=== PATIENT | female | born 1940 | race Caucasian/White ===

== ENCOUNTER 2019-12-19 14:28 | Outpatient (CLI) | payer MEDICARE, BC ==
--- NOTE | 2019-12-21 06:28 | XRAY Report ---
Reason: LB PX AFTER FALL Procedure Date: 12/19/2019 Accession Number: [id number] / [id number] Procedure: XR - Thoracic Spine 2 View CPT Code: Final Report FULL RESULT: EXAM: THORACIC SPINE RADIOGRAPHY EXAM DATE: 12/19/2019 03:07 PM. CLINICAL HISTORY: LB PX AFTER FALL. COMPARISON: None. TECHNIQUE: 2 views. FINDINGS: Alignment: Mild left convexity curvature of lower thoracic spine compatible with mild scoliosis. No spondylolisthesis. Bones: Visible osseous structures are osteopenic suggesting underlying osteoporosis. There are severe anterior wedge compression deformities involving the T8 and L1 vertebral bodies which are reduced in height approximately 80% anteriorly. These compression fractures are of indeterminate age. Disks: There is mild loss of disk height at multiple levels suggesting degenerative disk disease. Soft Tissues: Normal. The visualized lungs and cardiomediastinal silhouette are normal. IMPRESSION: 1. Severe anterior wedge compression deformities involving the T8 and L1 vertebral bodies with approximately 80% vertebral body height loss anteriorly. These compression fractures are of indeterminate age. If there is clinical suspicion of an acute compression fracture, MRI could be performed to assess for marrow edema if clinically indicated. 2. Visible osseous structures are osteopenic suggesting underlying osteoporosis. RADIA
--- NOTE | 2019-12-21 06:53 | XRAY Report ---
Reason: LB PX AFTER FALL Procedure Date: 12/19/2019 Accession Number: [id number] / [id number] Procedure: XR - Lumbar Spine 2 View CPT Code: Final Report FULL RESULT: EXAM: LUMBOSACRAL SPINE RADIOGRAPHY EXAM DATE: 12/19/2019 03:08 PM. CLINICAL HISTORY: LB PX AFTER FALL. COMPARISONS: None. TECHNIQUE: 2 views. FINDINGS: Alignment: There is mild to moderate right convexity curvature of the lower thoracic and upper lumbar spine compatible with scoliosis. This measures approximately 15 degrees. Letha of the curve is centered at the L1 level. No spondylolisthesis. There is a slight degenerative retrolisthesis at L5-S1. Bones: Five [id number] lumbar vertebral bodies are present. Visualized osseous structures are osteopenic suggesting underlying osteoporosis. There is a severe anterior wedge compression deformity of the L1 vertebral body which is reduced in height approximately 80% anteriorly. This compression fracture is of indeterminate age. No definite additional fractures are identified. Disks: There is moderate disk narrowing at L4-L5 and moderate to severe disk narrowing at L5-S1. There is vacuum disk at both levels. Mild disk narrowing is noted at the upper lumbar levels. Facets: There is bilateral facet hypertrophy at multiple levels. This is most prominent at L4-L5 and L5-S1. Sacroiliac Joints: Unremarkable. Soft Tissues: Normal. The visualized bowel gas pattern is normal. IMPRESSION: 1. Severe anterior wedge compression deformity of L1 vertebral body with approximately 80% vertebral body height loss anteriorly. This compression fracture is of indeterminate age. If there is clinical suspicion of an acute compression fracture, MRI could be performed to evaluate for bone marrow edema. 2. Generalized osteopenia suggesting underlying osteoporosis. 3. Moderate multilevel lumbar spondylosis and degenerative disk disease most pronounced at L4-L5 and L5-S1. 4. Mild to moderate right convexity scoliosis of lower thoracic and upper lumbar spine with apex of curve centered at L1. RADIA
== END 2019-12-19 14:29 | disposition home or self-care (01) ==
LOC: DI 14:28
PROVIDERS: ATTEND Internal Medicine
DX: S32.010A Wedge compression fracture of first lumbar vertebra, initial encounter for closed fracture (principal); S22.060A Wedge compression fracture of T7-T8 vertebra, initial encounter for closed fracture; M51.36 Other intervertebral disc degeneration, lumbar region; M51.37 Other intervertebral disc degeneration, lumbosacral region; M41.9 Scoliosis, unspecified; M47.816 Spondylosis without myelopathy or radiculopathy, lumbar region; M47.817 Spondylosis without myelopathy or radiculopathy, lumbosacral region
CPT/HCPCS: 72070; 72100

== ENCOUNTER 2020-01-01 17:36 | Inpatient (IN) | payer MEDICARE, BC ==
[2020-01-01] MEDS ORDERED: HYDROcod/ACETAM 5/325 MG TABLET PO STA (18:29)
--- NOTE | 2020-01-01 18:30 | ED Physician Documentation ---
PD HPI LOWER EXT INJURY - Stated complaint Stated Complaint: FALL/HIP PX - Chief complaint Chief Complaint: Trauma Ext - History obtained from History obtained from: Patient (She slipped on the stairs yesterday and fell injuring her right hip. An isolated injury, no other injuries. She has moderate hip pain laterally and posteriorly on the right. She is able to walk and bear weight but it hurts more. Lifting the leg hurts a lot.) Review of Systems Constitutional: reports: Reviewed and negative Nose: reports: Reviewed and negative Throat: reports: Reviewed and negative Cardiac: reports: Reviewed and negative PD PAST MEDICAL HISTORY - Past Medical History Past Medical History: Yes Neuro: Headaches GI: GERD - Past Surgical History Past Surgical History: No - Allergies Allergies/Adverse Reactions: Allergies Allergy/AdvReac Type Severity Reaction Status Date / Time No Known Drug Allergies Allergy Verified 01/01/20 17:39 - Social History Does the pt smoke?: No Smoking Status: Never smoker PD ED PE NORMAL - Vitals Vital signs reviewed: Yes - General General: Alert and oriented X 3, No acute distress - Extremities Extremities: Other (No significant tenderness about the right hip, internal rotation of the right hip at the knee is relatively painless, she does have some pain with external rotation. No deformity.) - Neuro Neuro: Alert and oriented X 3, Normal speech Results - Vitals Vitals: Vital Signs - 24 hr 01/01/20 17:39 Temperature 36.5 C Heart Rate 100 Respiratory 14 Rate Blood Pressure 130/81 H O2 Saturation 100 Oxygen O2 Source Room air - Rads (name of study) R hip XR Radiology: EMP read contemporaneously (femoral neck frx) PD MEDICAL DECISION MAKING - ED course ED course: 79-year-old woman presents with isolated right hip injury, found to have an femoral neck fracture. Pain was controlled with a single Vicodin, spoke with Dr. Winters, the on-call orthopedic surgeon at 7:25 PM who will come and see the patient, requests routine preop COVID's testing. Departure - Departure Disposition: [facility] DC/Xfer Clinical Impression: Closed right hip fracture Condition: Stable
--- NOTE | 2020-01-01 19:26 | XRAY Report ---
Reason: hip pain fall Procedure Date: 01/01/2020 Accession Number: [id number] / [id number] Procedure: XR - Hip w/Pelvis 2-3V RT CPT Code: Final Report FULL RESULT: EXAM: RIGHT HIP RADIOGRAPHY EXAM DATE: 01/01/2020 07:12 PM. CLINICAL HISTORY: Hip pain fall. COMPARISON: None. TECHNIQUE: 2 views. FINDINGS: Bones: An acute displaced subcapital fracture of right femoral neck, Garden type III fracture (complete fracture with partial displacement). Joints: Normal. No dislocation. The hip joint space is preserved. Soft Tissues: Normal. No soft tissue swelling. IMPRESSION: An acute displaced subcapital fracture of right femoral neck, Garden type III fracture (complete fracture with partial displacement). No malalignment. RADIA
[2020-01-01] MEDS ORDERED: ONDANSETRON ODT 4 MG TABLET TL PRN (19:36)
[2020-01-01] MEDS ORDERED: PROCHLORPERAZINE 10 MG/2 ML VIAL IVP PRN (19:36)
[2020-01-01] MEDS ORDERED: SODIUM CHLORIDE FLUSH 0.9% 10 ML SYRINGE IVP PRN (19:36)
[2020-01-01 19:38] LABS: BASOPHILS # (AUTO) 0.1 10^3/uL (0.0-0.1); BASOPHILS % (AUTO) 0.6 %; EOSINOPHILS # (AUTO) 0.2 10^3/uL (0.0-0.7); EOSINOPHILS % (AUTO) 1.7 %; HGB - HEMOGLOBIN 12.8 g/dL (12.0-16.0); LYMPHOCYTES # (AUTO) 0.8 10^3/uL (1.5-3.5); LYMPHOCYTES % (AUTO) 6.8 %; MEAN CORPUSCULAR HEMOGLOBIN 31.7 pg (27.0-31.0); MEAN CORPUSCULAR HGB CONC 32.7 g/dL (32.0-36.0); MEAN PLATELET VOLUME 10.1 fL (7.9-10.8); MONOCYTES # (AUTO) 0.8 10^3/uL (0.0-1.0); MONOCYTES % (AUTO) 6.3 %; NEUTROPHILS # (AUTO) 10.4 10^3/uL (1.5-6.6); PLT - PLATELET COUNT 233 10^3/uL (130-450); RED BLOOD COUNT 4.04 10^6/uL (4.20-5.40); RED CELL DISTRIBUTION WIDTH 13.1 % (12.0-15.0); WHITE BLOOD COUNT 12.3 x10^3/uL (4.8-10.8)
[2020-01-01 19:52] LABS: ALBUMIN 4.2 g/dL (3.2-5.5); ALBUMIN/GLOBULIN RATIO 1.3 (1.0-2.2); BILIRUBIN,TOTAL 0.9 mg/dL (0.2-1.0); CALCIUM 9.1 mg/dL (8.5-10.3); CREATININE 0.9 mg/dL (0.4-1.0); INR 1.2 (0.8-1.2); PT - PROTHROMBIN TIME 13.8 secs (9.9-12.6); TOTAL PROTEIN 7.4 g/dL (6.7-8.2)
--- NOTE | 2020-01-01 21:12 | HISTORY & PHYSICAL EXAMINATION ---
HPI - History Obtained From History obtained from: Patient Exam limitations: No limitations, Clinical condition - History of Present Illness Pain/Problem Location Description: Right upper thigh Severity at the worst: reports: Moderate Pain Quality: reports: Sharp, Aching Context-Pain started w/: reports: Movement Timing: reports: Abrupt onset (This is a 79-year-old woman who fell at home today. She cannot be certain if she fell today or yesterday. She was trying to walk when she fell, felt her right leg give way and fell onto the floor. She was able to walk after the fall but had increasing pain to the right upper thigh. She denies other areas of pain. She denies chest pain, shortness of breath, dizziness, syncope or loss of consciousness associated with the fall. She does have a fall history, no previous fractures that she can recall. She recalls a fall about 3 weeks ago. She uses a walker to ambulate. She is noted a general decline in her strength and her ability to walk. She is mainly in indoor ambulator. She resides usually with 1 of her sons or her daughter. Her general health has been relatively good. 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 : positive: None HEENT: positive: None Psych: positive: None Musculoskeletal: positive: Osteoporosis Derm: positive: None MRSA Hx?: No Social & Family Hx - Social History Does the pt smoke?: No Smoking Status: Never smoker Does the pt drink ETOH?: No Does the pt have substance abuse?: No Meds/Allgy - Allergies Allergies/Adverse Reactions: Allergies Allergy/AdvReac Type Severity Reaction Status Date / Time No Known Drug Allergies Allergy Verified 01/01/20 17:39 Exam - Vital Signs Vital Signs: Vital Signs x48h Temp Pulse Resp BP Pulse Ox 01/01/20 17:39 36.5 C 100 14 130/81 H 100 - Physical Exam General Appearance: positive: Mild distress Eyes Bilateral: positive: Normal inspection, PERRL ENT: positive: ENT inspection nml, Pharynx nml, No signs of dehydration Neck: positive: Nml inspection, Thyroid nml, No JVD, Trachea midline Respiratory: positive: Chest non-tender, No respiratory distress, Breath sounds nml Cardiovascular: positive: Regular rate & rhythm, No murmur, No gallop Peripheral Pulses: positive: 2+ Abdomen: positive: Non-tender, No organomegaly, Nml bowel sounds, No distention Back: positive: Nml inspection Skin: positive: Color nml, No rash, Warm, Dry Neurologic/Psychiatric: positive: Oriented x3 (Examination of her extremities reveal shortening of the right leg, painful and limited movement of right hip, no ecchymosis or sign of hematoma about right hip. There is no clinical deformity of the right leg or than shortening that seems to be secondary to shortening of right femur. She moves all of her joints of upper extremities to right and left sides well. The left leg shows no clinical abnormality or sign of injury. Skin is intact. Circulation is intact. Her neurologic function is intact to right lower extremity as well.), Mood/affect nml Results - Lab Results Fish Bones: 01/01/20 19:29 01/01/20 19:29 Other Lab Results: Lab Results x24hrs 01/01/20 01/01/20 01/01/20 Range/Units 19:29 19:29 19:29 WBC 12.3 H (4.8-10.8) x10^3/uL RBC 4.04 L (4.20-5.40) 10^6/uL Hgb 12.8 (12.0-16.0) g/dL Hct 39.2 (37.0-47.0) % MCV 97.0 (81.0-99.0) fL MCH 31.7 H (27.0-31.0) pg MCHC 32.7 (32.0-36.0) g/dL RDW 13.1 (12.0-15.0) % Plt Count 233 (130-450) 10^3/uL MPV 10.1 (7.9-10.8) fL Neut # (Auto) 10.4 H (1.5-6.6) 10^3/uL Lymph # (Auto) 0.8 L (1.5-3.5) 10^3/uL [place] # (Auto) 0.8 (0.0-1.0) 10^3/uL Eos # (Auto) 0.2 (0.0-0.7) 10^3/uL Baso # (Auto) 0.1 (0.0-0.1) 10^3/uL Absolute Nucleated RBC 0.00 x10^3/uL Nucleated RBC % 0.0 /100WBC PT 13.8 H (9.9-12.6) secs INR 1.2 (0.8-1.2) Sodium 138 (135-145) mmol/L Potassium 3.3 L (3.5-5.0) mmol/L Chloride 103 (101-111) mmol/L Carbon Dioxide 25 (21-32) mmol/L Anion Gap 10.0 (6-13) BUN 22 H (6-20) mg/dL Creatinine 0.9 (0.4-1.0) mg/dL Estimated GFR (MDRD) 61 L (>89) Glucose 116 H (70-100) mg/dL Calcium 9.1 (8.5-10.3) mg/dL Total Bilirubin 0.9 (0.2-1.0) mg/dL AST 17 (10-42) IU/L ALT 17 (10-60) IU/L Alkaline Phosphatase 119 (42-121) IU/L Total Protein 7.4 (6.7-8.2) g/dL Albumin 4.2 (3.2-5.5) g/dL Globulin 3.2 (2.1-4.2) g/dL Albumin/Globulin Ratio 1.3 (1.0-2.2) Lipase 27 (22-51) U/L Blood Type Antibody Screen 01/01/20 Range/Units 19:29 WBC (4.8-10.8) x10^3/uL RBC (4.20-5.40) 10^6/uL Hgb (12.0-16.0) g/dL Hct (37.0-47.0) % MCV (81.0-99.0) fL MCH (27.0-31.0) pg MCHC (32.0-36.0) g/dL RDW (12.0-15.0) % Plt Count (130-450) 10^3/uL MPV (7.9-10.8) fL Neut # (Auto) (1.5-6.6) 10^3/uL Lymph # (Auto) (1.5-3.5) 10^3/uL [place] # (Auto) (0.0-1.0) 10^3/uL Eos # (Auto) (0.0-0.7) 10^3/uL Baso # (Auto) (0.0-0.1) 10^3/uL Absolute Nucleated RBC x10^3/uL Nucleated RBC % /100WBC PT (9.9-12.6) secs INR (0.8-1.2) Sodium (135-145) mmol/L Potassium (3.5-5.0) mmol/L Chloride (101-111) mmol/L Carbon Dioxide (21-32) mmol/L Anion Gap (6-13) BUN (6-20) mg/dL Creatinine (0.4-1.0) mg/dL Estimated GFR (MDRD) (>89) Glucose (70-100) mg/dL Calcium (8.5-10.3) mg/dL Total Bilirubin (0.2-1.0) mg/dL AST (10-42) IU/L ALT (10-60) IU/L Alkaline Phosphatase (42-121) IU/L Total Protein (6.7-8.2) g/dL Albumin (3.2-5.5) g/dL Globulin (2.1-4.2) g/dL Albumin/Globulin Ratio (1.0-2.2) Lipase (22-51) U/L Blood Type O POSITIVE Antibody Screen NEGATIVE - Diagnostic Imaging Results Diagnostic Imaging Results: positive: Read contemporaneously (X-rays of the pelv is and right hip taken today were independently reviewed. She has a displaced femoral neck fracture of the right hip. There is shortening at the fracture site with some valgus angulation.There is osteopenia associated with the fracture) Impression/Plan - Problem List Problem List: ssImpression: 1. Displaced femoral neck fracture right hip secondary to osteoporosis; pathologic fracture 2. Hypokalemia 3. Mild hyperglycemia most likely secondary to stress Plan: 1. I discussed the risk, goals and alternatives with the patient. The options of treatment include nonoperative treatment and 2 surgical procedures. The mauricio gical procedures are percutaneous cannulated screw fixation versus hemiarthroplasty of the right hip. There is approximately 20% failure rate with screw fixation but the procedure is less invasive. The patient like to proceed with hemiarthroplasty, with a goal of creating potentially better function and correcting leg length better. She seems to have understanding the procedure, questions were encouraged and shared decision making done. She is in agreement to the surgery which will consist of a hemiarthroplasty of the right hip. COVID testing will be done, correction of hypokalemia with plan of performing surgery on 01/02/2020. Patient has signed an informed consent agreeing to the surgery to her right hipBoth disability and were discussed as part of the surgical risk
--- NOTE | 2020-01-01 21:24 | HISTORY & PHYSICAL EXAMINATION ---
Chief Complaint - Chief Complaint Chief Complaint: R hip pain History of Present Illness - Admitted From Admitted From:: ED - History Obtained From Records Reviewed: ED History obtained from: Patient and Dr Green Exam Limitations: None - History of Present Illness HPI Comment/Other: Patient is a 79-year-old female with no known past medical history with the exception of GERD, and migraine headaches for which she takes Maxalt. Patient is admitted for a right hip fracture. She states that she was walking up the stairs and fell off the second step earlier today was brought to the emergency room for evaluation due to pain.She was otherwise in good spirits and had relatively good pain control after 1 dose of [place]. Orthopedic surgery was consulted and they plan to operate around lunchtime tomorrow.Work-up otherwise was relatively benign. I did discuss CODE STATUS with patient and she would like to be a DNR/DNI but is okay with intubation for surgery if necessary. 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 : reports: None HEENT: reports: None Psych: reports: None Musculoskeletal: reports: Osteoporosis Derm: reports: None MRSA Hx?: No - Past Surgical History /PLASTIC AND RECONSTRUCTIVE SURGEON: reports: Tubal ligation HEENT: reports: Tonsil/Adenoidectomy - Family & Social History Family History Comment/Other: Denies family history of significant medical illness, no family hx of intolerance to anasthetics Living arrangement: At home Living Situation: With family Social History Notes: Patient currently living between her son and daughter's home in the area, planning to relocate to [place] in the near future.She is originally from [facility]. - Substance History Use: Uses substance without health or social issues: NONE - POLST Patient has POLST: Yes POLST Status: DNR Meds/Allgy - Allergies Allergies/Adverse Reactions: Allergies Allergy/AdvReac Type Severity Reaction Status Date / Time No Known Drug Allergies Allergy Verified 01/01/20 17:39 Review of Systems - Constitutional Constitutional: reports: Other (4 falls in the last year). denies: Fatigue, Weakness Prior Level of Functionality: Relatively independent Exam - Vital Signs Reviewed Vital Signs: Yes Vital Signs: Vital Signs x48h Temp Pulse Pulse Resp BP BP Pulse Ox 01/01/20 21:13 36.4 C L 79 16 130/88 H 01/01/20 17:39 36.5 C 100 14 130/81 H 100 - Physical Exam General Appearance: positive: No acute distress, Alert Eyes Bilateral: positive: Normal inspection, EOMI ENT: positive: ENT inspection nml, Pharynx nml Neck: positive: Nml inspection, Thyroid nml, No JVD, Trachea midline Respiratory: positive: Chest non-tender, No respiratory distress Cardiovascular: positive: Regular rate & rhythm, No murmur, No gallop Peripheral Pulses: positive: 2+ Abdomen: positive: Non-tender, No organomegaly, Nml bowel sounds, No distention Skin: positive: Color nml Extremities: positive: Other (Shortened right lower extremity, Neurovascular st atus is intact bilaterally) Neurologic/Psychiatric: positive: Oriented x3 Sepsis Event Note (H) - Evaluation Current Stage of Sepsis: Ruled out Conclusion/Plan - Problem List (1) Closed right hip fracture Conclusion/Plan: Reviewed x-rays and discussed patient's case with orthopedic surgeon, Dr. Winters. Plan is for right hemiarthroplasty tomorrow. I have given her Lovenox starting today as it should be more than 12 hours preoperatively. Lab review shows no obvious contraindication to surgery. Patient's medical history does not demonstrate any contraindication to surgery. EKG is currently pending which I have ordered. Barring any exceptional findings on the EKG, I would consider her to be low risk for hip surgery and recommend proceeding with R hip hemiarthroplasty with standard precautions. We will continue pain control with oral pain medications as allows, with PRN IV medications only if necessary.But her on a bowel regimen. Qualifiers: Encounter type: initial encounter Qualified Code(s): S72.001A - Fracture of unspecified part of neck of right femur, initial encounter for closed fracture (2) Hypokalemia Conclusion/Plan: Mild hypokalemia at 3.3, likely related to the fracture. Will replace orally. (3) Leukocytosis Conclusion/Plan: Mild leukocytosis likely stress reaction due to the fracture. Will repeat labs in the morning and monitor for fever with low threshold for empiric antibiotics with evidence of infection. In addition, will check a urinalysis. (4) GERD (gastroesophageal reflux disease) Conclusion/Plan: Stable, continue PPI daily - Lab Results Lab results reviewed: Yes Fish Bones: 05/14/20 19:29 01/01/20 19:29 - Diagnostic Imaging Results Diagnostic Imaging Results: positive: Final report reviewed, Read independently Core Measures - Anticipated LOS I expect patient to be DC'd or transferred within 96 hours.: Yes - DVT/VTE - Prophylaxis VTE/DVT Device ordered at admit?: Yes VTE/DVT Prophylaxis med ordered at admit?: Yes
[2020-01-01] MEDS: LACTATED RINGERS 1,000 ML IV SCH (21:36)
[2020-01-01] MEDS: MORPHINE 2 MG/ML CARPUJECT IVP PRN (21:36)
[2020-01-01] MEDS: DOCUSATE SODIUM 100 MG CAPSULE PO SCH (23:00)
[2020-01-01 23:04] LABS: GLUCOSE, URINE (UA) NEGATIVE (NEGATIVE); KETONES,URINE (UA) 15 mg/dL (NEGATIVE); LEUKOCYTE ESTERASE, URINE SMALL (NEGATIVE); NITRITE,URINE NEGATIVE (NEGATIVE); OCCULT BLOOD,URINE NEGATIVE (NEGATIVE); PH,URINE 5.5 PH (5.0-7.5); PROTEIN,URINE TRACE mg/dL (NEGATIVE); UROBILINOGEN,URINE 1 (NORMAL) E.U./dL (NORMAL)
[2020-01-01 23:15] LABS: BACTERIA,URINE Many /HPF (None Seen); BILIRUBIN,URINE NEGATIVE (NEGATIVE); CLARITY,URINE SL. CLOUDY (CLEAR); CRYSTALS,URINE 0-2 Calcium Oxalate /LPF; ICTOTEST,URINE NEGATIVE; RBC,URINE 0-5 /HPF (0-5); SQUAMOUS EPITHELIAL CELL,UR FEW Squamous (<= Few)
[2020-01-02] MEDS: MORPHINE 2 MG/ML CARPUJECT IVP PRN ×2 (01:48→20:09)
[2020-01-02] MEDS: SODIUM CHLORIDE FLUSH 0.9% 10 ML SYRINGE IVP SCH ×4 (01:50→17:32)
[2020-01-02 05:15] LABS: HGB - HEMOGLOBIN 11.9 g/dL (12.0-16.0); MEAN CORPUSCULAR HEMOGLOBIN 31.6 pg (27.0-31.0); MEAN CORPUSCULAR HGB CONC 32.2 g/dL (32.0-36.0); MEAN CORPUSCULAR VOLUME 97.9 fL (81.0-99.0); MEAN PLATELET VOLUME 10.2 fL (7.9-10.8); RED BLOOD COUNT 3.77 10^6/uL (4.20-5.40); RED CELL DISTRIBUTION WIDTH 13.2 % (12.0-15.0); WHITE BLOOD COUNT 8.1 x10^3/uL (4.8-10.8)
[2020-01-02 05:25] LABS: CALCIUM 8.7 mg/dL (8.5-10.3); CREATININE 0.8 mg/dL (0.4-1.0)
[2020-01-02] MEDS: PANTOPRAZOLE 40 MG TABLET PO SCH (07:00)
[2020-01-02] MEDS ORDERED: POTASSIUM CHLORIDE 20 MEQ TABLET PO ONE (08:00)
[2020-01-02] MEDS: DOCUSATE SODIUM 100 MG CAPSULE PO SCH (08:28)
[2020-01-02] MEDS: ENOXAPARIN 40 MG/0.4 ML SYRINGE SUBQ SCH (08:29)
[2020-01-02] MEDS: LACTATED RINGERS 1,000 ML IV SCH (08:31)
[2020-01-02] MEDS ORDERED: cefTRIAXone 1 GM VIAL IVP SCH (10:00)
--- NOTE | 2020-01-02 10:07 | ANESTHESIA ---
Pre-Anesthesia VS, & Labs - Diagnosis Right hip fracture - Procedure Right hemiarthroplasty Vital Signs: Temp Pulse Resp BP Pulse Ox 36.6 C 70 20 161/86 H 98 01/02/20 08:18 01/02/20 08:18 01/02/20 08:18 01/02/20 08:18 01/02/20 08:18 Height 5 ft 8 in Weight (kg) 55 kg Body Mass Index 18.4 - NPO >8 hours - Is Patient ?: No - Lab Results Current Lab Results: Laboratory Tests 01/02/20 04:35: Sodium 140, Potassium 3.2 L, Chloride 103, Carbon Dioxide 27, Anion Gap 10.0, BUN 18, Creatinine 0.8, Estimated GFR (MDRD) 69 L, Glucose 87, Calcium 8.7 01/02/20 04:35: WBC 8.1, RBC 3.77 L, Hgb 11.9 L, Hct 36.9 L, MCV 97.9, MCH 31.6 H, MCHC 32.2, RDW 13.2, Plt Count 207, MPV 10.2 01/02/20 04:35: Blood Type Recheck O POSITIVE 01/01/20 19:29: Sodium 138, Potassium 3.3 L, Chloride 103, Carbon Dioxide 25, Anion Gap 10.0, BUN 22 H, Creatinine 0.9, Estimated GFR (MDRD) 61 L, Glucose 116 H, Calcium 9.1, Total Bilirubin 0.9, AST 17, ALT 17, Alkaline Phosphatase 119, Total Protein 7.4, Albumin 4.2, Globulin 3.2, Albumin/Globulin Ratio 1.3, Lipase 27 01/01/20 19:29: PT 13.8 H, INR 1.2 01/01/20 19:29: WBC 12.3 H, RBC 4.04 L, Hgb 12.8, Hct 39.2, MCV 97.0, MCH 31.7 H , MCHC 32.7, RDW 13.1, Plt Count 233, MPV 10.1, Neut # (Auto) 10.4 H, Lymph # (Auto) 0.8 L, [place] # (Auto) 0.8, Eos # (Auto) 0.2, Baso # (Auto) 0.1, Absolute Nucleated RBC 0.00, Nucleated RBC % 0.0 01/01/20 19:29: Blood Type O POSITIVE, Antibody Screen NEGATIVE Fish Bones: 01/02/20 04:35 01/02/20 04:35 Home Medications and Allergies Active Medications Acetaminophen (Tylenol) 650 mg PO Q4HR PRN PRN Reason: Pain 1 to 4 Docusate Sodium (Colace 100mg Capsule) 100 mg PO DAILY [facility] Last Admin: 01/02/20 08:28 Dose: 100 mg Enoxaparin Sodium (Lovenox) 40 mg SUBQ DAILY [facility] Last Admin: 01/02/20 08:29 Dose: 40 mg Potassium Chloride/Dextrose/Sod Cl (D5.45ns W/20 Meq Kcl) 1,000 mls @ 83.333 mls/hr IV .Q12H [facility] Stop: 01/03/20 09:59 Morphine Sulfate (Morphine (Carpuject)) 2 mg IVP Q2HR PRN PRN Reason: Pain 8 to 10 Last Admin: 01/02/20 01:48 Dose: 2 mg Ondansetron HCl (Zofran Odt) 4 mg TL Q6HR PRN PRN Reason: Nausea / Vomiting Oxycodone HCl (Roxicodone) 5 mg PO Q4HR PRN PRN Reason: Pain 5 to 7 Pantoprazole Sodium (Protonix) 40 mg PO QDAC [facility] Last Admin: 01/02/20 07:00 Dose: 40 mg Prochlorperazine Edisylate (Compazine Inj) 10 mg IVP Q6HR PRN PRN Reason: Nausea / Vomiting Sodium Chloride (Normal Saline Flush 0.9%) 10 ml IVP PRN PRN PRN Reason: NEEDED PER PROVIDER ORDERS Last Admin: 01/01/20 21:36 Dose: 10 ml Sodium Chloride (Normal Saline Flush 0.9%) 10 ml IVP 0100,0900,1700 [facility] Last Admin: 01/02/20 01:50 Dose: Not Given Allergies/Adverse Reactions: Allergies Allergy/AdvReac Type Severity Reaction Status Date / Time No Known Drug Allergies Allergy Verified 01/01/20 17:39 Anes History & Medical History - Anesthetic History Anesthesia Complications: reports: No previous complications - Medical History Cardiovascular: reports: None Pulmonary: reports: None Gastrointestinal: reports: GERD (controlled on medication) Urinary: reports: None Neuro: reports: Dementia (mild), Headaches (migraines), Migraines Musculoskeletal: reports: Osteoporosis Endocrine/Autoimmune: reports: None Blood Disorders: reports: None Skin: reports: None Smoking Status: Former smoker (quit at age 26) Psychosocial: reports: Alcohol (wine every night) - Surgical History Eyes Ears Nose Throat (EENT): Tonsil/Adenoidectomy Gynecologic: Tubal ligation Results - EKG Results EKG Comparison: Reviewed EKG Exam General: Alert, Oriented x3, Cooperative, No acute distress Dental: WNL Mouth Openin Fingerbreadth Neck Mobility: Normal Mallampati classification: III Thyromental Distance: 4-6 cm Plan Anesthesia Type: General Consent for Procedure(s) Verified and Reviewed: Yes Code Status: Attempt Resuscitation ASA classification: 2-Mild systemic disease Is this case an emergency?: No
[2020-01-02] MEDS ORDERED: cefTRIAXone 1 GM in SODIUM CHLORIDE 0.9% MINIBAG 100 ML IV SCH (10:30)
[2020-01-02] MEDS ORDERED: LIDOCAINE 1%-EPI 1:100000 20 ML MDV ONE (10:48)
[2020-01-02] MEDS ORDERED: ROPIVACAINE 0.5% PF 20 ML AMPULE ONE (10:53)
[2020-01-02] MEDS ORDERED: LACTATED RINGERS 1,000 ML IV ONE ×2 (10:57→12:13)
[2020-01-02] MEDS ORDERED: LIDOCAINE 1%-EPI 1:100000 20 ML MDV SUBQ ONE (11:47)
--- NOTE | 2020-01-02 11:55 | PROVIDER PROGRESS NOTE ---
Assessment/Plan - Problem List (1) Closed right hip fracture Qualifiers: Encounter type: initial encounter Qualified Code(s): S72.001A - Fracture of unspecified part of neck of right femur, initial encounter for closed fracture Assessment/Plan: 01/01 pt will have surgery on this afternoon. Discussed with orthopedic surgeon for the care. continue pain control, NPO with IVF, lab monitor, and H&H monitor as well after procedure. night provider assessed pre-operation cardiac risk: low risk for hip surgery. DVT prophylaxis will depend to surgeon after surgery. now it is Lovenox. (2) Hypokalemia Conclusion/Plan: 01/01 still slight lower, will replace and lab monitor (3) Leukocytosis Conclusion/Plan: resolved. we closely monitor if pt has UTI, since surgeon will give pt antibiotics for pre-operation, we will followup. (4) GERD (gastroesophageal reflux disease) Conclusion/Plan: Stable, continue PPI daily - Current Meds Current Meds: Current Medications Generic Name Dose Route Start Last Admin Trade Name Freq PRN Reason Stop Dose Admin Docusate Sodium 100 mg 01/01/20 21:37 01/02/20 08:28 Colace 100mg Capsule PO 100 mg DAILY YO Administration Enoxaparin Sodium 40 mg 01/02/20 09:00 01/02/20 08:29 Lovenox SUBQ 40 mg DAILY YO Administration Morphine Sulfate 2 mg 01/01/20 19:36 01/02/20 01:48 Morphine (Carpuject) IVP 2 mg Q2HR PRN Administration Pain 8 to 10 Pantoprazole Sodium 40 mg 01/02/20 07:00 01/02/20 07:00 Protonix PO 40 mg QDAC YO Administration Sodium Chloride 10 ml 01/01/20 19:36 01/01/20 21:36 Normal Saline Flush 0.9% IVP 10 ml PRN PRN Administration NEEDED PER PROVIDER ORDERS Sodium Chloride 10 ml 01/02/20 01:00 01/02/20 01:50 Normal Saline Flush 0.9% IVP Not Given 0100,0900,1700 YO - Lab Result Fish Bone Diagrams: 01/02/20 04:35 01/02/20 04:35 - Additional Planning My Orders: My Active Orders 01/02/20 10:00 D5.45ns W/20 Meq KCl 1,000 ml IV 83.333 mls/hr 01/02/20 21:00 H&H [HEMOGLOBIN AND HEMATOCRIT] [HEME] Timed Subjective - Subjective Patient Reports: Feeling Better Objective Vital Signs: Vital Signs - 24 hr 01/01/20 01/01/20 01/02/20 17:39 21:13 00:15 Temperature 36.5 C 36.4 C L 36.3 C L Heart Rate 100 Heart Rate [ 79 68 Brachial] Respiratory 14 16 16 Rate Blood Pressure 130/81 H Blood Pressure 130/88 H 140/76 H [Right Brachial artery] O2 Saturation 100 96 01/02/20 08:18 Temperature 36.6 C Heart Rate Heart Rate [ 70 Brachial] Respiratory 20 Rate Blood Pressure Blood Pressure 161/86 H [Right Brachial artery] O2 Saturation 98 Oxygen O2 Source Room air I&O (Last 24 Hrs): Intake and Output Totals x24h 12/31/19 01/01/20 01/02/20 23:59 23:59 23:59 Intake Total 818.75 Output Total 50 250 Balance -50 568.75 General: Alert, Oriented x3, No acute distress HEENT: Atraumatic Neck: Supple Lymphatic: no adenopathy Neuro: Alert, Non Focal Cardiovascular: Regular rate, Normal S1, Normal S2 Respiratory: Chest non-tender, No respiratory distress, Breath sounds nml Abdomen: Normal bowel sounds, Soft Extremities: Normal pulses - Results Results: Laboratory Results WBC 8.1 x10^3/uL (4.8-10.8) 01/02/20 04:35 RBC 3.77 10^6/uL (4.20-5.40) L 01/02/20 04:35 Hgb 11.9 g/dL (12.0-16.0) L 01/02/20 04:35 Hct 36.9 % (37.0-47.0) L 01/02/20 04:35 MCV 97.9 fL (81.0-99.0) 01/02/20 04:35 MCH 31.6 pg (27.0-31.0) H 01/02/20 04:35 MCHC 32.2 g/dL (32.0-36.0) 01/02/20 04:35 RDW 13.2 % (12.0-15.0) 01/02/20 04:35 Plt Count 207 10^3/uL (130-450) 01/02/20 04:35 MPV 10.2 fL (7.9-10.8) 01/02/20 04:35 Neut # (Auto) 10.4 10^3/uL (1.5-6.6) H 01/01/20 19:29 Lymph # (Auto) 0.8 10^3/uL (1.5-3.5) L 01/01/20 19:29 Collier # (Auto) 0.8 10^3/uL (0.0-1.0) 01/01/20 19: Eos # (Auto) 0.2 10^3/uL (0.0-0.7) 01/01/20 19: Baso # (Auto) 0.1 10^3/uL (0.0-0.1) 01/01/20 19: Absolute Nucleated RBC 0.00 x10^3/uL 01/01/20 19: Nucleated RBC % 0.0 /100WBC 01/01/20 19: PT 13.8 secs (9.9-12.6) H 01/01/20 19:29 INR 1.2 (0.8-1.2) 01/01/20 19:29 Sodium 140 mmol/L (135-145) 01/02/20 04:35 Potassium 3.2 mmol/L (3.5-5.0) L 01/02/20 04:35 Chloride 103 mmol/L (101-111) 01/02/20 04:35 Carbon Dioxide 27 mmol/L (21-32) 01/02/20 04:35 Anion Gap 10.0 (6-13) 01/02/20 04:35 BUN 18 mg/dL (6-20) 01/02/20 04:35 Creatinine 0.8 mg/dL (0.4-1.0) 01/02/20 04:35 Estimated GFR (MDRD) 69 (>89) L 01/02/20 04:35 Glucose 87 mg/dL (70-100) 01/02/20 04:35 Calcium 8.7 mg/dL (8.5-10.3) 01/02/20 04:35 Total Bilirubin 0.9 mg/dL (0.2-1.0) 01/01/20 19:29 AST 17 IU/L (10-42) 01/01/20 19:29 ALT 17 IU/L (10-60) 01/01/20 19:29 Alkaline Phosphatase 119 IU/L (42-121) 01/01/20 19:29 Total Protein 7.4 g/dL (6.7-8.2) 01/01/20 19: Albumin 4.2 g/dL (3.2-5.5) 01/01/20 19: Globulin 3.2 g/dL (2.1-4.2) 01/01/20 19: Albumin/Globulin Ratio 1.3 (1.0-2.2) 01/01/20 19: Lipase 27 U/L (22-51) 01/01/20 19:29 Urine Color YELLOW 01/01/20 22:50 Urine Clarity SL. CLOUDY (CLEAR) 01/01/20 22:50 Urine pH 5.5 PH (5.0-7.5) 01/01/20 22:50 Ur Specific [place] 1.025 (1.002-1.030) 01/01/20 22:50 Urine Protein TRACE mg/dL (NEGATIVE) 01/01/20 22:50 Urine Glucose (UA) NEGATIVE mg/dL (NEGATIVE) 01/01/20 22:50 Urine Ketones 15 mg/dL (NEGATIVE) H 01/01/20 22:50 Urine Occult Blood NEGATIVE (NEGATIVE) 01/01/20 22:50 Urine Nitrite NEGATIVE (NEGATIVE) 01/01/20 22:50 Urine Bilirubin NEGATIVE (NEGATIVE) 01/01/20 22:50 Urine Urobilinogen 1 (NORMAL) E.U./dL (NORMAL) 01/01/20 22:50 Ur Leukocyte Esterase SMALL (NEGATIVE) H 01/01/20 22:50 Urine RBC 0-5 /HPF (0-5) 01/01/20 22:50 Urine WBC 4-5 /HPF (0-5) 01/01/20 22:50 Ur Squamous Epith Cells FEW Squamous (<= Few) 01/01/20 22:50 Urine Crystals 0-2 Calcium Oxalate /LPF 01/01/20 22:50 Urine Bacteria Many /HPF (None Seen) H 01/01/20 22:50 Urine Culture Comments INDICATED 01/01/20 22:50 Coronavirus (PCR) NEGATIVE 01/01/20 20:00 Blood Type O POSITIVE 01/01/20 19:29 Blood Type Recheck O POSITIVE 01/02/20 04:35 Antibody Screen NEGATIVE 01/01/20 19:29 Sepsis Event Note (H) - Evaluation Current Stage of Sepsis: Ruled out ABX Reporting Has patient been on IV antibiotics over the past 48 hours?: No Current Medications - Current Medications Current Medications: Active Medications Acetaminophen (Tylenol) 650 mg PO Q4HR PRN PRN Reason: Pain 1 to 4 Docusate Sodium (Colace 100mg Capsule) 100 mg PO DAILY [facility] Last Admin: 01/02/20 08:28 Dose: 100 mg Enoxaparin Sodium (Lovenox) 40 mg SUBQ DAILY [facility] Last Admin: 01/02/20 08:29 Dose: 40 mg Potassium Chloride/Dextrose/Sod Cl (D5.45ns W/20 Meq Kcl) 1,000 mls @ 83.333 mls/hr IV .Q12H [facility] Stop: 01/03/20 09:59 Morphine Sulfate (Morphine (Carpuject)) 2 mg IVP Q2HR PRN PRN Reason: Pain 8 to 10 Last Admin: 01/02/20 01:48 Dose: 2 mg Ondansetron HCl (Zofran Odt) 4 mg TL Q6HR PRN PRN Reason: Nausea / Vomiting Oxycodone HCl (Roxicodone) 5 mg PO Q4HR PRN PRN Reason: Pain 5 to 7 Pantoprazole Sodium (Protonix) 40 mg PO QDAC [facility] Last Admin: 01/02/20 07:00 Dose: 40 mg Prochlorperazine Edisylate (Compazine Inj) 10 mg IVP Q6HR PRN PRN Reason: Nausea / Vomiting Sodium Chloride (Normal Saline Flush 0.9%) 10 ml IVP PRN PRN PRN Reason: NEEDED PER PROVIDER ORDERS Last Admin: 01/01/20 21:36 Dose: 10 ml Sodium Chloride (Normal Saline Flush 0.9%) 10 ml IVP 0100,0900,1700 [facility] Last Admin: 01/02/20 01:50 Dose: Not Given
--- NOTE | 2020-01-02 13:40 | OPERATIVE REPORT ---
Operative Report - General Admit Date: 01/01/20 Procedure Date: 01/02/20 Planned Procedure: Right hip hemiarthroplasty Pre-Op Diagnosis: Displaced femoral neck fracture right hip Procedure Performed: Hemiarthroplasty right hip with Fong [employer] Nephew #13 noncemented femoral component, -3 neck and 47 mm unipolar cobalt chrome femoral head, standard offset - Procedure Note Primary Surgeon: Dr. Ramirez. Vianey Secondary Surgeon: Dr. Aries Almodovar Anesthesia Provider: Lisa Orozco Anesthesia Technique: General ET tube Estimated Blood Loss (mL): 300 Indications: This is a 79-year-old ambulatory woman who sustained a fragility fracture involving the right femoral neck recently. She had acute pain and difficulty weightbearing on the right leg. She had shortening of the right leg but no significant rotational deformity although clinically she did have decreased external rotation. Her general health has been relatively good although she has had a slow decline in physical activity, strength and mental acuity. Her x-rays showed a displaced femoral neck fracture of the right hip. She had preoperative medical evaluation by the hospitalist. Her hypokalemia was treated. Findings: She had a subcapital femoral neck fracture of the right hip. The articular cartilage of the acetabulum looked normal. Complications: No known complications - Other Other Information/Narrative: The patient was brought to the operating room, placed in a supine position and was given a general anesthetic with endotracheal tube. She was placed in a lateral decubitus position with the right hip facing upward. She was secured in this position using a pegboard with post. 3 padded posterior use. The right hip and right lower extremity was prepped and draped in a sterile manner in the usual fashion. A double prep with alcohol and ChloraPrep was utilized. She did receive 2 g of Ancef intravenously before the procedure. A timeout procedure was performed by the entire operating room team and all were in agreement. A straight lateral incision was made over the lateral aspect of the right hip and trochanter. The subcutaneous tissue and fascia humaira were split in line with the incision. An initial self-retaining retractor was inserted. The anterior third of the gluteus medius was reflected with electrocautery. The anterior hip capsule was exposed in a T-shaped fashion. The femoral head was removed with a corkscrew and bone hook. The size of the femoral head measured 47 mm. The right leg was placed in a sterile anterior pocket. The femoral canal was opened with a box osteotome. The starting reamer was utilized to open the femoral canal and reamers were used up to a #13. Femoral broaching was then carried out in increments. Initially a #14 was inserted but was too long, therefore, a #13 was inserted deeper with further calcar reaming to allow a reduction of the hip joint with the trial prosthesis. The hip was stable to reduction, stable with range of motion. The trial components were removed and pulsatile lavage was used. A #13 Fong [employer] Nephew Synergy standard offset femoral component was inserted with -3 mm neck and 47 mm unipolar femoral head. The head was impacted on the femoral trunnion. The right hip was reduced and was found stable to range of motion. A three-minute dilute Betadine lavage was performed. The hip capsule and gluteus medius were independently repaired with #1 Vicryl suture. The fascia humaira was closed with #1 Vicryl suture. The subcutaneous tissue was closed with 2-0 Vicryl suture. The skin was closed with a 3-0 Monocryl subcuticular stitch. Dermabond was applied to the skin, allowed to dry and a silver impregnated dressing was applied to the skin incision. A hip abduction pillow was inserted. The patient tolerated the procedure well. There is no clinical deformity to the right leg at the end the procedure.
[2020-01-02] MEDS ORDERED: ACETAMINOPHEN 1,000 MG/100 ML 100 ML IV PRN (14:02)
[2020-01-02] MEDS ORDERED: SODIUM CHLORIDE FLUSH 0.9% 10 ML SYRINGE IVP PRN (14:02)
[2020-01-02] MEDS ORDERED: PROCHLORPERAZINE 10 MG/2 ML VIAL IVP PRN (14:02)
[2020-01-02] MEDS ORDERED: ACETAMINOPHEN 325 MG TABLET PO PRN (14:02)
[2020-01-02] MEDS ORDERED: ONDANSETRON 4 MG/2 ML VIAL IVP PRN (14:02)
[2020-01-02] MEDS: fentaNYL 100 MCG/2 ML VIAL ONE ×2 (14:10→14:22)
--- NOTE | 2020-01-02 14:12 | XRAY Report ---
Reason: post op hemiarthroplasty right hip Procedure Date: 01/02/2020 Accession Number: [id number] / [id number] Procedure: XR - Hip w/Pelvis 2-3V RT CPT Code: Final Report FULL RESULT: EXAM: RIGHT HIP RADIOGRAPHY EXAM DATE: 01/02/2020 01:58 PM. CLINICAL HISTORY: Postop hemiarthroplasty right hip. COMPARISON: HIP W/PELVIS 2-3V RT 01/01/2020 6:43 PM. TECHNIQUE: 2 views. FINDINGS: Interval right hip total arthroplasty. Normal alignment without evidence of loosening. No shoes detected. IMPRESSION: Postoperative changes right hip with normal alignment. RADIA
[2020-01-02] MEDS ORDERED: SODIUM CHLORIDE 0.9% 100ML 100 ML IV ONE ×2 (14:29→17:42)
[2020-01-02] MEDS ORDERED: ceFAZolin 2 GM in SODIUM CHLORIDE 0.9% 100ML 100 ML IV SCH (15:00)
[2020-01-02] MEDS: D5.45NS W/20 MEQ KCL 1,000 ML IV SCH (15:01)
--- NOTE | 2020-01-02 15:42 | PHARMACY PROGRESS NOTE ---
- Best Possible Medication History Admit Date and Time: 01/01/201935 Processed by: Pharmacy Medication History completed: Yes Patient Interview: Pt unable to participate Secondary Source(s): Pharmacy records (RECORDS FROM [facility]) As the person ultimately responsible for medication therapy, providers are able to order a medication from an existing home medication list in [facility] via the "Reconcile Routine" prior to Confirmation of that medication by systems support officer. Such practice is discouraged except when the physician, in their clinical judgment, deems that a medical need exists for a medication without regard to previous use.
[2020-01-02] MEDS: ASPIRIN 325 MG TABLET PO SCH (16:22)
[2020-01-02] MEDS ORDERED: HALOPERIDOL 5 MG/ML VIAL IVP ONE (16:40)
[2020-01-02] MEDS: ceFAZolin 2 GM in SODIUM CHLORIDE 0.9% 100ML 100 ML IV SCH (17:44)
[2020-01-02] MEDS: MEMANTINE 5 MG TABLET PO SCH (20:48)
[2020-01-02] MEDS: FERROUS SULFATE 325 MG TABLET PO SCH (20:48)
[2020-01-02 21:44] LABS: HGB - HEMOGLOBIN 10.5 g/dL (12.0-16.0)
[2020-01-03] MEDS: SODIUM CHLORIDE FLUSH 0.9% 10 ML SYRINGE IVP SCH ×8 (00:07→23:57)
[2020-01-03] MEDS: ceFAZolin 2 GM in SODIUM CHLORIDE 0.9% 100ML 100 ML IV SCH (01:54)
[2020-01-03] MEDS: D5.45NS W/20 MEQ KCL 1,000 ML IV SCH (04:12)
[2020-01-03 05:21] LABS: HGB - HEMOGLOBIN 9.5 g/dL (12.0-16.0); MEAN CORPUSCULAR HEMOGLOBIN 31.4 pg (27.0-31.0); MEAN CORPUSCULAR HGB CONC 31.7 g/dL (32.0-36.0); MEAN PLATELET VOLUME 10.4 fL (7.9-10.8); RED BLOOD COUNT 3.03 10^6/uL (4.20-5.40); RED CELL DISTRIBUTION WIDTH 13.3 % (12.0-15.0); WHITE BLOOD COUNT 10.2 x10^3/uL (4.8-10.8)
[2020-01-03 05:29] LABS: CALCIUM 8.5 mg/dL (8.5-10.3); CREATININE 0.9 mg/dL (0.4-1.0)
[2020-01-03] MEDS: PANTOPRAZOLE 40 MG TABLET PO SCH (06:09)
[2020-01-03] MEDS: MORPHINE 2 MG/ML CARPUJECT IVP PRN ×2 (06:18→08:45)
[2020-01-03] MEDS: FERROUS SULFATE 325 MG TABLET PO SCH ×2 (08:46→20:55)
[2020-01-03] MEDS: MEMANTINE 5 MG TABLET PO SCH ×2 (08:46→20:55)
[2020-01-03] MEDS: DOCUSATE SODIUM 100 MG CAPSULE PO SCH (08:46)
[2020-01-03] MEDS: SERTRALINE 50 MG TABLET PO SCH (08:47)
[2020-01-03] MEDS: ASPIRIN 325 MG TABLET PO SCH ×2 (08:52→17:16)
[2020-01-03] MEDS: ENOXAPARIN 40 MG/0.4 ML SYRINGE SUBQ SCH (08:52)
--- NOTE | 2020-01-03 11:54 | PROVIDER PROGRESS NOTE ---
Subjective - Prog Note Date Prog Note Date: 01/03/20 - Subjective Subjective: She was delirious and agitated yesterday evening and required Haldol. This morning she notes at the hospital and why she is here but she still feels confused and does not know the year or month. She reports no pain in her right leg and states her pain overall is well controlled. Reports no chest pain or dyspnea. Current Medications - Current Medications Current Medications: Active Medications Acetaminophen (Tylenol) 650 mg PO Q4HR PRN PRN Reason: Pain 1 to 4 Acetaminophen (Tylenol) 650 - 975 mg PO Q4HR PRN PRN Reason: PAIN Aspirin (Babak) 325 mg PO BIDWM [facility] Last Admin: 01/03/20 08:52 Dose: 325 mg Docusate Sodium (Colace 100mg Capsule) 100 mg PO DAILY [facility] Last Admin: 01/03/20 08:46 Dose: 100 mg Ferrous Sulfate (Feosol) 325 mg PO BID [facility] Last Admin: 01/03/20 08:46 Dose: 325 mg Acetaminophen (Ofirmev) 100 mls @ 400 mls/hr IV Q6HR PRN PRN Reason: PAIN Memantine (Namenda) 10 mg PO BID [facility] Last Admin: 01/03/20 08:46 Dose: 10 mg Morphine Sulfate (Morphine (Carpuject)) 2 mg IVP Q2HR PRN PRN Reason: Pain 8 to 10 Last Admin: 01/03/20 08:45 Dose: 2 mg Ondansetron HCl (Zofran Odt) 4 mg TL Q6HR PRN PRN Reason: Nausea / Vomiting Ondansetron HCl (Zofran Inj) 4 mg IVP Q6HR PRN PRN Reason: Nausea / Vomiting Oxycodone HCl (Roxicodone) 5 mg PO Q4HR PRN PRN Reason: Pain 5 to 7 Pantoprazole Sodium (Protonix) 40 mg PO QDAC [facility] Last Admin: 01/03/20 06:09 Dose: 40 mg Prochlorperazine Edisylate (Compazine Inj) 10 mg IVP Q6HR PRN PRN Reason: Nausea / Vomiting Prochlorperazine Edisylate (Compazine Inj) 10 mg IVP Q6HR PRN PRN Reason: Nausea / Vomiting Sertraline HCl (Zoloft) 50 mg PO DAILY [facility] Last Admin: 01/03/20 08:47 Dose: 50 mg Sodium Chloride (Normal Saline Flush 0.9%) 10 ml IVP PRN PRN PRN Reason: NEEDED PER PROVIDER ORDERS Last Admin: 01/01/20 21:36 Dose: 10 ml Sodium Chloride (Normal Saline Flush 0.9%) 10 ml IVP 0100,0900,1700 [facility] Last Admin: 01/03/20 00:07 Dose: Not Given Sodium Chloride (Normal Saline Flush 0.9%) 10 ml IVP 0100,0900,1700 [facility] Last Admin: 01/03/20 00:07 Dose: Not Given Sodium Chloride (Normal Saline Flush 0.9%) 10 ml IVP PRN PRN PRN Reason: NEEDED PER PROVIDER ORDERS Calcitonin [Fortical] 1 spray WING DAILY 01/02/20 Ferrous Sulfate 325 mg PO BID 01/02/20 Memantine HCl [Namenda] 10 mg PO BID 01/02/20 Omeprazole 40 mg PO DAILY 01/02/20 Sertraline [Zoloft] 50 mg PO DAILY 01/02/20 Objective - Vital Signs/Intake & Output Reviewed Vital Signs: Yes Vital Signs: Vital Signs x48h Temp Pulse Resp BP Pulse Ox 01/03/20 08:00 37.2 C 88 17 141/72 H 92 Intake & Output: Intake & Output 12/31/19 01/01/20 01/02/20 01/03/20 23:59 23:59 23:59 23:59 Intake Total 2098.75 1200 Output Total 50 525 1000 Balance -50 1573.75 200 - Objective General Appearance: positive: No acute distress, Alert Eyes Bilateral: positive: Normal inspection, Conjunctivae nml ENT: positive: ENT inspection nml Neck: positive: Nml inspection Respiratory: positive: No respiratory distress. negative: Wheezes, Rales, Rhonchi Cardiovascular: positive: Regular rate & rhythm, No murmur. negative: Tachycardia Abdomen: positive: Non-tender, No distention. negative: Tenderness Extremities: positive: Other (Dressing in place over the lateral aspect of the right hip. The area is nontender.) Neurologic/Psychiatric: positive: Disoriented to time, Other. negative: Disoriented to person, Disoriented to place - Lab Results Fish Bones: 01/03/20 05:03 01/03/20 05:03 Other Labs: Lab Results x24hrs 01/03/20 01/03/20 01/02/20 Range/Units 05:03 05:03 21:37 WBC 10.2 (4.8-10.8) x10^3/uL RBC 3.03 L (4.20-5.40) 10^6/uL Hgb 9.5 L 10.5 L (12.0-16.0) g/dL Hct 30.0 L 31.0 L (37.0-47.0) % MCV 99.0 (81.0-99.0) fL MCH 31.4 H (27.0-31.0) pg MCHC 31.7 L (32.0-36.0) g/dL RDW 13.3 (12.0-15.0) % Plt Count 184 (130-450) 10^3/uL MPV 10.4 (7.9-10.8) fL Sodium 137 (135-145) mmol/L Potassium 4.0 (3.5-5.0) mmol/L Chloride 103 (101-111) mmol/L Carbon Dioxide 24 (21-32) mmol/L Anion Gap 10.0 (6-13) BUN 13 (6-20) mg/dL Creatinine 0.9 (0.4-1.0) mg/dL Estimated GFR (MDRD) 61 L (>89) Glucose 122 H (70-100) mg/dL Calcium 8.5 (8.5-10.3) mg/dL ABX Reporting Has patient been on IV antibiotics over the past 48 hours?: No Sepsis Event Note (H) - Evaluation Current Stage of Sepsis: Ruled out Assessment/Plan - Problem List (1) Closed right hip fracture Impression: She is status post right hemiarthroplasty on January 01. Continue with morphine IV as needed and oxycodone as needed for pain control. Will use aspirin 325 mg twice daily for DVT prophylaxis after discussion with orthopedics. Continue physical therapy. Social work consult for placement. Qualifiers: Encounter type: initial encounter Qualified Code(s): S72.001A - Fracture of unspecified part of neck of right femur, initial encounter for closed fracture (2) Delirium Impression: She was delirious yesterday evening required Haldol for agitation. This morning she is oriented to self and location but is otherwise disoriented. She is at risk for delirium given her underlying dementia and being postoperative after receiving general anesthesia. She is also receiving narcotics for her right hip hemiarthroplasty. We will attempt limited use of IV narcotics to limit the risk of worsening delirium. She has become agitated, will use Haldol 0.5 mg 1 mg every 6 hours as needed. Delirium precautions. (3) Postoperative anemia Impression: Hemoglobin has slightly decreased to 9.5 postoperatively. She did have 300 mL of estimated blood loss in the OR. Hemoglobin is within the expected range. We will continue to monitor for signs of bleeding. Daily CBC for the time being unless there are signs of bleeding. (4) Osteoporosis Impression: Likely contributed to her right hip fracture. Imaging reveals osteopenia. Osteoporosis consult has been placed and she will benefit from a bisphosphonate two weeks post fracture. Check vitamin D level. Qualifiers: Osteoporosis type: age-related Presence of current pathological fracture: with current pathological fracture Encounter type: initial encounter Qualified Code(s): M80.00XA - Age-related osteoporosis with current pathological fracture, unspecified site, initial encounter for fracture (5) UTI (urinary tract infection) Impression: Her urinalysis showed small leukocyte esterase with 4-5 WBCs and many bacteria. It is unclear if she is symptomatic or not and this is likely colonization given her age. Given her delirium, we will treat her empirically with oral Vantin. Follow-up cultures. (6) Dementia Impression: This puts her at risk for delirium. We will continue her home memantine.
[2020-01-03] MEDS: oxyCODONE 5 MG TABLET PO PRN (12:12)
[2020-01-03] MEDS: CEFPODOXIME PROXETIL 100 MG TABLET PO SCH ×2 (12:20→20:55)
--- NOTE | 2020-01-03 12:44 | PROVIDER PROGRESS NOTE ---
Subjective - General Admit Date: 01/01/20 Procedure Date: 01/02/20 Post Op Days: 1 - Review of Systems Wound/Incisions: positive: Dressing dry and intact General: positive: No symptoms HEENT: positive: No symptoms Pulmonary: positive: No symptoms Cardiovascular: positive: No symptoms Gastrointestinal: positive: No symptoms Genitourinary: positive: No symptoms Musculoskeletal: positive: Leg pain Neurological: Psychiatric: positive: Confusion All Other Systems: positive: Reviewed and negative - Other Other Information/Narrative: kSitting comfortably, alert, not oriented. Pain to right hip under good control. Exam of right leg: dressing intact and dry; no clinical deformity to right leg; No neurologic or vascular deficit to right leg; no sign of hematoma about right hip Objective - Patient Data Vital Signs: Vital Signs x48h Temp Pulse Resp BP Pulse Ox 01/03/20 08:00 37.2 C 88 17 141/72 H 92 Weight: Weight 01/01/20 01/02/20 01/03/20 23:59 23:59 23:59 Weight (kg) 55 kg Intake & Output: Intake and Output Totals x24h 01/01/20 01/02/20 01/03/20 23:59 23:59 23:59 Intake Total 2098.75 1200 Output Total 50 525 1000 Balance -50 1573.75 200 - Lab Results Lab Results: 01/03/20 05:03 01/03/20 05:03 Other Lab Results: Lab Results x24hrs 01/03/20 01/03/20 01/02/20 Range/Units 05:03 05:03 21:37 WBC 10.2 (4.8-10.8) x10^3/uL RBC 3.03 L (4.20-5.40) 10^6/uL Hgb 9.5 L 10.5 L (12.0-16.0) g/dL Hct 30.0 L 31.0 L (37.0-47.0) % MCV 99.0 (81.0-99.0) fL MCH 31.4 H (27.0-31.0) pg MCHC 31.7 L (32.0-36.0) g/dL RDW 13.3 (12.0-15.0) % Plt Count 184 (130-450) 10^3/uL MPV 10.4 (7.9-10.8) fL Sodium 137 (135-145) mmol/L Potassium 4.0 (3.5-5.0) mmol/L Chloride 103 (101-111) mmol/L Carbon Dioxide 24 (21-32) mmol/L Anion Gap 10.0 (6-13) BUN 13 (6-20) mg/dL Creatinine 0.9 (0.4-1.0) mg/dL Estimated GFR (MDRD) 61 L (>89) Glucose 122 H (70-100) mg/dL Calcium 8.5 (8.5-10.3) mg/dL - Current Medications Current Medications: Current Medications Generic Name Dose Route Start Last Admin Trade Name Freq PRN Reason Stop Dose Admin Aspirin 325 mg 01/02/20 17:00 01/03/20 08:52 Babak PO 325 mg BIDWM YO Administration Cefuroxime Axetil 100 mg 01/03/20 11:55 01/03/20 12:20 Vantin PO 100 mg BID YO Administration Docusate Sodium 100 mg 01/01/20 21:37 01/03/20 08:46 Colace 100mg Capsule PO 100 mg DAILY YO Administration Ferrous Sulfate 325 mg 01/02/20 21:00 01/03/20 08:46 Feosol PO 325 mg BID YO Administration Memantine 10 mg 01/02/20 21:00 01/03/20 08:46 Namenda PO 10 mg BID YO Administration Morphine Sulfate 2 mg 01/01/20 19:36 01/03/20 08:45 Morphine (Carpuject) IVP 2 mg Q2HR PRN Administration Pain 8 to 10 Oxycodone HCl 5 mg 01/01/20 19:36 01/03/20 12:12 Roxicodone PO 5 mg Q4HR PRN Administration Pain 5 to 7 Pantoprazole Sodium 40 mg 01/02/20 07:00 01/03/20 06:09 Protonix PO 40 mg QDAC YO Administration Sertraline HCl 50 mg 01/03/20 09:00 01/03/20 08:47 Zoloft PO 50 mg DAILY YO Administration Sodium Chloride 10 ml 01/01/20 19:36 01/01/20 21:36 Normal Saline Flush 0.9% IVP 10 ml PRN PRN Administration NEEDED PER PROVIDER ORDERS Sodium Chloride 10 ml 01/02/20 01:00 01/03/20 12:14 Normal Saline Flush 0.9% IVP Not Given 0100,0900,1700 YO Sodium Chloride 10 ml 01/02/20 17:00 01/03/20 12:14 Normal Saline Flush 0.9% IVP Not Given 0100,0900,1700 YO
[2020-01-03] MEDS: ACETAMINOPHEN 325 MG TABLET PO PRN ×2 (15:45→20:55)
[2020-01-03 16:47] LABS: CALCIUM 8.3 mg/dL (8.5-10.3); CREATININE 0.9 mg/dL (0.4-1.0); MAGNESIUM 1.6 mg/dL (1.7-2.8)
[2020-01-03] MEDS ORDERED: POTASSIUM CHLORIDE 20 MEQ TABLET PO STA (17:07)
[2020-01-03] MEDS: polyethylene glycoL 3350 17 GM PACKET PO SCH (17:16)
[2020-01-03] MEDS ORDERED: MAGNESIUM OXIDE 400 MG TABLET PO ONE (18:00)
[2020-01-04] MEDS: oxyCODONE 5 MG TABLET PO PRN ×2 (04:55→10:38)
[2020-01-04] MEDS ORDERED: LACTULOSE 10 GM /15 ML UDC PO ONE (05:44)
[2020-01-04] MEDS: PANTOPRAZOLE 40 MG TABLET PO SCH (06:06)
[2020-01-04 06:16] LABS: HGB - HEMOGLOBIN 9.5 g/dL (12.0-16.0); MEAN CORPUSCULAR HEMOGLOBIN 32.2 pg (27.0-31.0); MEAN CORPUSCULAR HGB CONC 32.9 g/dL (32.0-36.0); MEAN PLATELET VOLUME 10.6 fL (7.9-10.8); RED BLOOD COUNT 2.95 10^6/uL (4.20-5.40); RED CELL DISTRIBUTION WIDTH 13.4 % (12.0-15.0); WHITE BLOOD COUNT 9.9 x10^3/uL (4.8-10.8)
[2020-01-04 06:30] LABS: CALCIUM 8.6 mg/dL (8.5-10.3); CREATININE 0.6 mg/dL (0.4-1.0)
[2020-01-04] MEDS: ASPIRIN 325 MG TABLET PO SCH ×2 (08:24→17:02)
[2020-01-04] MEDS: MEMANTINE 5 MG TABLET PO SCH ×2 (08:24→20:14)
[2020-01-04] MEDS: CEFPODOXIME PROXETIL 100 MG TABLET PO SCH ×2 (08:25→20:14)
[2020-01-04] MEDS: SERTRALINE 50 MG TABLET PO SCH (08:25)
[2020-01-04] MEDS: FERROUS SULFATE 325 MG TABLET PO SCH ×2 (08:26→20:13)
[2020-01-04] MEDS: polyethylene glycoL 3350 17 GM PACKET PO SCH (08:26)
[2020-01-04] MEDS: DOCUSATE SODIUM 100 MG CAPSULE PO SCH (08:26)
[2020-01-04] MEDS: SODIUM CHLORIDE FLUSH 0.9% 10 ML SYRINGE IVP SCH ×4 (08:31→20:14)
--- NOTE | 2020-01-04 11:18 | PROVIDER PROGRESS NOTE ---
Subjective - Prog Note Date Prog Note Date: 01/04/20 - Subjective Subjective: Reports feeling well. Denies any chest pain or dyspnea. States the pain in her right hip is well controlled. Reports no numbness in her lower extremities. Current Medications - Current Medications Current Medications: Active Medications Acetaminophen (Tylenol) 650 mg PO Q4HR PRN PRN Reason: Pain 1 to 4 Last Admin: 01/03/20 20:55 Dose: 650 mg Acetaminophen (Tylenol) 650 - 975 mg PO Q4HR PRN PRN Reason: PAIN Aspirin (Babak) 325 mg PO BIDWM [facility] Last Admin: 01/04/20 08:24 Dose: 325 mg Cefuroxime Axetil (Vantin) 100 mg PO BID [facility] Last Admin: 01/04/20 08:25 Dose: 100 mg Docusate Sodium (Colace 100mg Capsule) 100 mg PO DAILY [facility] Last Admin: 01/04/20 08:26 Dose: 100 mg Ferrous Sulfate (Feosol) 325 mg PO BID [facility] Last Admin: 01/04/20 08:26 Dose: 325 mg Memantine (Namenda) 10 mg PO BID [facility] Last Admin: 01/04/20 08:24 Dose: 10 mg Ondansetron HCl (Zofran Odt) 4 mg TL Q6HR PRN PRN Reason: Nausea / Vomiting Ondansetron HCl (Zofran Inj) 4 mg IVP Q6HR PRN PRN Reason: Nausea / Vomiting Oxycodone HCl (Roxicodone) 5 mg PO Q4HR PRN PRN Reason: Pain 5 to 7 Last Admin: 01/04/20 10:38 Dose: 5 mg Pantoprazole Sodium (Protonix) 40 mg PO QDAC [facility] Last Admin: 01/04/20 06:06 Dose: 40 mg Polyethylene Glycol (Miralax) 17 gm PO DAILY [facility] Last Admin: 01/04/20 08:26 Dose: 17 gm Prochlorperazine Edisylate (Compazine Inj) 10 mg IVP Q6HR PRN PRN Reason: Nausea / Vomiting Prochlorperazine Edisylate (Compazine Inj) 10 mg IVP Q6HR PRN PRN Reason: Nausea / Vomiting Sertraline HCl (Zoloft) 50 mg PO DAILY [facility] Last Admin: 01/04/20 08:25 Dose: 50 mg Sodium Chloride (Normal Saline Flush 0.9%) 10 ml IVP PRN PRN PRN Reason: NEEDED PER PROVIDER ORDERS Last Admin: 01/01/20 21:36 Dose: 10 ml Sodium Chloride (Normal Saline Flush 0.9%) 10 ml IVP 0100,0900,1700 [facility] Last Admin: 01/04/20 08:31 Dose: 10 ml Sodium Chloride (Normal Saline Flush 0.9%) 10 ml IVP 0100,0900,1700 [facility] Last Admin: 01/04/20 10:26 Dose: Not Given Sodium Chloride (Normal Saline Flush 0.9%) 10 ml IVP PRN PRN PRN Reason: NEEDED PER PROVIDER ORDERS Calcitonin [Fortical] 1 spray WING DAILY 01/02/20 Ferrous Sulfate 325 mg PO BID 01/02/20 Memantine HCl [Namenda] 10 mg PO BID 01/02/20 Omeprazole 40 mg PO DAILY 01/02/20 Sertraline [Zoloft] 50 mg PO DAILY 01/02/20 Objective - Vital Signs/Intake & Output Reviewed Vital Signs: Yes Vital Signs: Vital Signs x48h Temp Pulse Resp BP Pulse Ox 01/04/20 07:30 36.5 C 95 16 154/89 H 96 01/04/20 04:47 37.3 C 87 16 151/87 H 94 Intake & Output: Intake & Output 01/01/20 01/02/20 01/03/20 01/04/20 23:59 23:59 23:59 23:59 Intake Total 2098.75 2970 720 Output Total 50 525 1700 750 Balance -50 1573.75 1270 -30 - Objective General Appearance: positive: No acute distress, Alert Eyes Bilateral: positive: Normal inspection ENT: positive: ENT inspection nml Neck: positive: Nml inspection Respiratory: positive: No respiratory distress Cardiovascular: positive: Regular rate & rhythm, No murmur. negative: Tachycardia Abdomen: positive: Non-tender, No distention. negative: Tenderness Skin: positive: Warm, Dry Extremities: positive: No pedal edema, Other (Dressing in place over the right hip. The area is nontender with no evidence of erythema.) Neurologic/Psychiatric: positive: Other (She is oriented to self, location, year , month. She knows why she is here at the hospital.). negative: Disoriented to person, Disoriented to place - Lab Results Fish Bones: 01/04/20 06:00 01/04/20 06:00 Other Labs: Lab Results x24hrs 01/04/20 01/04/20 01/03/20 Range/Units 06:00 06:00 16:00 WBC 9.9 (4.8-10.8) x10^3/uL RBC 2.95 L (4.20-5.40) 10^6/uL Hgb 9.5 L (12.0-16.0) g/dL Hct 28.9 L (37.0-47.0) % MCV 98.0 (81.0-99.0) fL MCH 32.2 H (27.0-31.0) pg MCHC 32.9 (32.0-36.0) g/dL RDW 13.4 (12.0-15.0) % Plt Count 178 (130-450) 10^3/uL MPV 10.6 (7.9-10.8) fL Sodium 136 134 L (135-145) mmol/L Potassium 3.9 3.5 (3.5-5.0) mmol/L Chloride 104 100 L (101-111) mmol/L Carbon Dioxide 24 22 (21-32) mmol/L Anion Gap 8.0 12.0 (6-13) BUN 12 11 (6-20) mg/dL Creatinine 0.6 0.9 (0.4-1.0) mg/dL Estimated GFR (MDRD) 96 61 L (>89) Glucose 102 H 107 H (70-100) mg/dL Calcium 8.6 8.3 L (8.5-10.3) mg/dL Magnesium 1.6 L (1.7-2.8) mg/dL ABX Reporting Has patient been on IV antibiotics over the past 48 hours?: No Sepsis Event Note (H) - Evaluation Current Stage of Sepsis: Ruled out Assessment/Plan - Problem List (1) Closed right hip fracture Impression: She is now postop day 3 from a right hemiarthroplasty. Pain has been controlled and she has been working with physical therapy. We will discontinue morphine and continue oxycodone for pain control. Continue aspirin 325 mg twice daily for DVT prophylaxis. Will suspect that she will be medically stable for discharge tomorrow to a [facility] facility. Qualifiers: Encounter type: initial encounter Qualified Code(s): S72.001A - Fracture of unspecified part of neck of right femur, initial encounter for closed fracture (2) Delirium Impression: She has significantly improved and is now oriented to self, location, year, month and knows why she is in the hospital. Suspect this was exacerbated by the anesthesia given her baseline dementia. We will discontinue the morphine IV as opiates may contribute to her delirium. We will continue with just the oxycodone as needed. Continue delirium precautions. (3) Postoperative anemia Impression: Hemoglobin is stable at 9.5. There is no evidence of bleeding. Continue to monitor. (4) Osteoporosis Impression: Imaging on admission revealed osteopenia. Osteoporosis consult has been placed and she will benefit from a bisphosphonate 2 weeks post fracture. Vitamin D level has been ordered and is pending. Qualifiers: Osteoporosis type: age-related Presence of current pathological fracture: with current pathological fracture Encounter type: initial encounter Qualified Code(s): M80.00XA - Age-related osteoporosis with current pathological fracture, unspecified site, initial encounter for fracture (5) UTI (urinary tract infection) Impression: Cultures are growing gram-negative lor. We will continue with oral Vantin twice daily. (6) Dementia Impression: This is contributing to her delirium. She is oriented to self and location. Continue her home memantine.
--- NOTE | 2020-01-04 12:31 | PROVIDER PROGRESS NOTE ---
Subjective - General Admit Date: 01/01/20 Procedure Date: 01/02/20 Post Op Days: 2 Procedure Performed: Hemiarthoplasty right hip - Review of Systems Wound/Incisions: positive: Dressing dry and intact (She is improving. Tolerates sitting well. She is more alert and oriented. She offers no complaints. On exam, her dressing is intact. There is no sign of hematoma. Neurovascular intact to right leg. She is progressing with physical therapy. Hgb is stable. ASA/ foot pumps for DVT prevention. Continue present treatment. Expect transfer to SNF tomorrow. Discussed with Dr. Duron) General: positive: No symptoms HEENT: positive: No symptoms Pulmonary: positive: No symptoms Cardiovascular: positive: No symptoms Gastrointestinal: positive: No symptoms Genitourinary: positive: No symptoms Musculoskeletal: positive: Leg pain Psychiatric: positive: Confusion All Other Systems: positive: Reviewed and negative Objective - Patient Data Vital Signs: Vital Signs x48h Temp Pulse Resp BP Pulse Ox 01/04/20 11:17 36.6 C 103 H 16 122/72 93 01/04/20 07:30 36.5 C 95 16 154/89 H 96 01/04/20 04:47 37.3 C 87 16 151/87 H 94 Intake & Output: Intake and Output Totals x24h 01/02/20 01/03/20 01/04/20 23:59 23:59 23:59 Intake Total 2098.75 2970 720 Output Total 525 1700 750 Balance 1573.75 1270 -30 - Lab Results Lab Results: 01/04/20 06:00 01/04/20 06:00 Other Lab Results: Lab Results x24hrs 01/04/20 01/04/20 01/03/20 Range/Units 06:00 06:00 16:00 WBC 9.9 (4.8-10.8) x10^3/uL RBC 2.95 L (4.20-5.40) 10^6/uL Hgb 9.5 L (12.0-16.0) g/dL Hct 28.9 L (37.0-47.0) % MCV 98.0 (81.0-99.0) fL MCH 32.2 H (27.0-31.0) pg MCHC 32.9 (32.0-36.0) g/dL RDW 13.4 (12.0-15.0) % Plt Count 178 (130-450) 10^3/uL MPV 10.6 (7.9-10.8) fL Sodium 136 134 L (135-145) mmol/L Potassium 3.9 3.5 (3.5-5.0) mmol/L Chloride 104 100 L (101-111) mmol/L Carbon Dioxide 24 22 (21-32) mmol/L Anion Gap 8.0 12.0 (6-13) BUN 12 11 (6-20) mg/dL Creatinine 0.6 0.9 (0.4-1.0) mg/dL Estimated GFR (MDRD) 96 61 L (>89) Glucose 102 H 107 H (70-100) mg/dL Calcium 8.6 8.3 L (8.5-10.3) mg/dL Magnesium 1.6 L (1.7-2.8) mg/dL - Current Medications Current Medications: Current Medications Generic Name Dose Route Start Last Admin Trade Name Fre PRN Reason Stop Dose Admin Acetaminophen 650 mg 01/01/20 19:36 01/03/20 20:55 Tylenol PO 650 mg Q4HR PRN Administration Pain 1 to 4 Aspirin 325 mg 01/02/20 17:00 01/04/20 08:24 Babak PO 325 mg BIDWM YO Administration Cefuroxime Axetil 100 mg 01/03/20 11:55 01/04/20 08:25 Vantin PO 100 mg BID YO Administration Docusate Sodium 100 mg 01/01/20 21:37 01/04/20 08:26 Colace 100mg Capsule PO 100 mg DAILY YO Administration Ferrous Sulfate 325 mg 01/02/20 21:00 01/04/20 08:26 Feosol PO 325 mg BID YO Administration Memantine 10 mg 01/02/20 21:00 01/04/20 08:24 Namenda PO 10 mg BID YO Administration Oxycodone HCl 5 mg 01/01/20 19:36 01/04/20 10:38 Roxicodone PO 5 mg Q4HR PRN Administration Pain 5 to 7 Pantoprazole Sodium 40 mg 01/02/20 07:00 01/04/20 06:06 Protonix PO 40 mg QDAC YO Administration Polyethylene Glycol 17 gm 01/03/20 16:00 01/04/20 08:26 Miralax PO 17 gm DAILY YO Administration Sertraline HCl 50 mg 01/03/20 09:00 01/04/20 08:25 Zoloft PO 50 mg DAILY YO Administration Sodium Chloride 10 ml 01/01/20 19:36 01/01/20 21:36 Normal Saline Flush 0.9% IVP 10 ml PRN PRN Administration NEEDED PER PROVIDER ORDERS Sodium Chloride 10 ml 01/02/20 01:00 01/04/20 08:31 Normal Saline Flush 0.9% IVP 10 ml 0100,0900,1700 YO Administration Sodium Chloride 10 ml 01/02/20 17:00 01/04/20 10:26 Normal Saline Flush 0.9% IVP Not Given 0100,0900,1700 YO
[2020-01-04] MEDS ORDERED: MAGNESIUM HYDROXIDE 2,400 MG/30 ML UDC PO ONE (15:36)
[2020-01-04] MEDS ORDERED: ROCURONIUM 50 MG/5 ML VIAL IVP ONE (16:10)
[2020-01-04] MEDS ORDERED: GLYCOPYRROLATE 1 MG/5 ML VIAL IVP ONE (16:10)
[2020-01-04] MEDS ORDERED: DEXAMETHASONE 4 MG/ML VIAL IVP ONE (16:10)
[2020-01-04] MEDS ORDERED: ONDANSETRON 4 MG/2 ML VIAL IVP ONE (16:10)
[2020-01-04] MEDS ORDERED: PHENYLEPHRINE 10 MG/ML VIAL IV ONE (16:10)
[2020-01-04] MEDS ORDERED: ROPIVACAINE 0.2% PF 20ML VIAL EP ONE (16:10)
[2020-01-04] MEDS ORDERED: TRANEXAMIC ACID 1,000 MG/10 ML VIAL IV ONE (16:10)
[2020-01-04] MEDS ORDERED: fentaNYL 250 MCG/5 ML VIAL IVP ONE (16:10)
[2020-01-04] MEDS ORDERED: NEOSTIGMINE 1 MG/1 ML 10 ML MDV IVP ONE (16:10)
[2020-01-04] MEDS ORDERED: PROPOFOL 200 MG/20 ML VIAL IVP ONE (16:10)
[2020-01-04] MEDS: ACETAMINOPHEN 325 MG TABLET PO PRN (17:02)
[2020-01-05] MEDS: SODIUM CHLORIDE FLUSH 0.9% 10 ML SYRINGE IVP SCH ×4 (00:04→08:52)
[2020-01-05] MEDS: ACETAMINOPHEN 325 MG TABLET PO PRN ×2 (02:14→11:08)
[2020-01-05] MEDS: oxyCODONE 5 MG TABLET PO PRN (02:15)
[2020-01-05] MEDS: PANTOPRAZOLE 40 MG TABLET PO SCH (05:40)
[2020-01-05] MEDS: ASPIRIN 325 MG TABLET PO SCH (08:51)
[2020-01-05] MEDS: SERTRALINE 50 MG TABLET PO SCH (08:52)
[2020-01-05] MEDS: MEMANTINE 5 MG TABLET PO SCH (08:52)
[2020-01-05] MEDS: DOCUSATE SODIUM 100 MG CAPSULE PO SCH (08:52)
[2020-01-05] MEDS: CEFPODOXIME PROXETIL 100 MG TABLET PO SCH (08:52)
[2020-01-05] MEDS: FERROUS SULFATE 325 MG TABLET PO SCH (08:52)
[2020-01-05] MEDS: polyethylene glycoL 3350 17 GM PACKET PO SCH (08:52)
[2020-01-05] MEDS ORDERED: CIPROFLOXACIN 250 MG TABLET PO SCH (11:00)
--- NOTE | 2020-01-05 11:33 | Discharge Plan ---
"Discharge Plan for SNF / [facility]FUS - Discharge Plan And Transition Orders Problem Reviewed?: Yes Disposition: SNF DC/Xfer Condition: Good Allergies and Adverse Reactions: Allergies Allergy/AdvReac Type Severity Reaction Status Date / Time No Known Drug Allergies Allergy Verified 01/01/20 17:39 Health Concerns: She was admitted for right hip fracture and underwent a right hemiarthroplasty on January 01. She did well postoperatively and her hemoglobin remained stable. Her pain has been controlled with oral oxycodone. She had delirium initially postoperatively after anesthesia but she is now back to her baseline. She does have dementia at baseline. Plan of Treatment: She will continue aspirin 325 mg twice daily for 30 days. Oxycodone 5 mg as needed for pain control. She will need to start Fosamax 70 mg weekly on January 14 which will be 2 weeks post fracture. Care Goals: She will need follow-up with orthopedics in 7 to 10 days. - SNF / CORRECTION Transition Orders Admit to (Facility): [facility] Discharge Diagnosis: Right hip fracture status post right hemiarthroplasty. Osteoporosis Medicare Certification Statement: I certify that Post Hospital [facility] care is medically necessary on a continuing basis for any of the conditions for which she/he is receiving care during hospitalization. Notify PCP of admission and forward orders to primary provider for signature. Other Notification Orders: Call PCP immediately if patient develops dyspnea, chest pain/tightness or edema. House Bowel Program: Yes Additional Bowel Program Orders: If no BM after 2 days, nurse may give M.O.M. 30ml PO PRN and/or ducolax Supp 1 PA and/or JASIEL 250mg P.O., and/or senna 1-2 tabs PO. On day 3 nurse may give repeat above order until residents constipation is resolved. Treatments & Other Orders: She is to start Fosamax 70 mg weekly and January 14. Orthopedic Orders: She is weightbearing as tolerated. She will need to follow- up in 7 to 10 days with orthopedics. Medication Orders: PLEASE REFER TO THE DISCHARGE MEDICATION LIST. - Medications New Prescriptions: Acetaminophen [Tylenol Extra Strength] 1,000 mg PO BID #30 tablet Alendronate [Fosamax] 70 mg PO Q7D #4 tablet Aspirin [Babak] 325 mg PO BIDWM 30 Days #60 tablet Calcium Carbonate 500 mg PO BID #60 tablet Cholecalciferol (Vitamin D3) [Vitamin D3] 1,250 mcg PO DAILY #15 capsule oxyCODONE [Roxicodone] 5 mg PO Q4H PRN #20 tablet PRN Reason: Pain Senna [Senokot] 8.6 mg PO DAILY #14 tablet - Diet Texture: Regular - Therapies | Activity Therapy: Evaluation | Treat if indicated: PT Rehabilitation Potential: Return to independent living Activity: Activity as Tolerated Extremities: NWBRLE Assistance Devices: Walker"
--- NOTE | 2020-01-05 12:09 | DISCHARGE SUMMARY ---
"Discharge Summary Admit Date: 01/01/20 Discharge Date: 01/05/20 Discharging Provider: Dago Soler Primary Care Provider: Nora Sullivan Code Status: Attempt Resuscitation Condition at Discharge: Good Discharge Disposition: 03 SNF DC/Xfer Discharge Facility Name: [facility] - DIAGNOSES Admission Diagnoses: Closed right hip fracture Hypokalemia Leukocytosis GERD Discharge Diagnoses with Status of Each Condition: Closed right hip fracture - stable. Status post right hip hemiarthroplasty on January 01. She will continue aspirin 325 mg twice daily for 30 days for DVT prophylaxis. Oxycodone as needed for pain control. She will need follow-up with orthopedics in 7 to 10 days. Postoperative anemia - stable. Hemoglobin did decrease to 9.5 postoperatively but it has been stable with no evidence of bleeding. Osteoporosis - stable. Vitamin D level is pending. She was discharged on calcium 500 mg twice daily and vitamin D 1000 units daily. She will begin Fosamax on January 14 which is 2 weeks postoperatively. Asymptomatic bacteriuria - stable. Analysis on admission showed small leukocyte esterase and many bacteria. She was asymptomatic. She was nicely treated with IV ceftriaxone. Urine culture grew Klebsiella and Pseudomonas. Given she was astigmatic, antibiotics were discontinued and she will not be discharged on any antibiotics. Dementia - stable. She did have delirium during this hospitalization postoperatively. She required Haldol the day of surgery but has since been back to her baseline. She oriented to self, location she knows why she is here. We will continue memantine on discharge. - HPI History of Present Illness: H&P per Dr. Rodriguez: Patient is a 79-year-old female with no known past medical history with the exception of GERD, and migraine headaches for which she takes Maxalt. Patient is admitted for a right hip fracture. She states that she was walking up the stairs and fell off the second step earlier today was brought to the emergency room for evaluation due to pain.She was otherwise in good spirits and had relatively good pain control after 1 dose of [place]. Orthopedic surgery was consulted and they plan to operate around lunchtime tomorrow.Work-up otherwise was relatively benign. I did discuss CODE STATUS with patient and she would like to be a DNR/DNI but is okay with intubation for surgery if necessary. - CONSULTS | PROCEDURES Consultations: Orthopedics, PT, Social Work Procedures: She underwent right hip hemiarthroplasty on January 01. There was 300 mL of estimated blood loss. - HOSPITAL COURSE Hospital Course: She admitted for right hip fracture underwent right hip hemiarthroplasty on January 01. Her pain is treated with morphine and oxycodone as needed. She started on aspirin 325 mg twice daily for DVT prophylaxis. She was delirious postoperatively likely due to anesthesia and her having dementia at baseline. She did require Haldol that evening but otherwise returned back to her baseline. She was initially treated for a urinary tract infection given her urinalysis showed many bacteria and small oxide esterase. She was on IV ceftriaxone and switched to oral Vantin. This was discontinued as she never had symptoms. Urine culture did grow Klebsiella and less than 50,000 of Pseudomonas. Given she was asymptomatic, it was felt this was likely colonization given her age and she was not discharged on antibiotics. She did work with physical therapy during his hospitalization and has done quite well. She will be discharged to [facility] for continued PT. She will need to start Fosamax in 2 weeks after a fracture which will be January 14. She was discharged on calcium and vitamin D. - ALLERGIES Allergies/Adverse Reactions: Allergies Allergy/AdvReac Type Severity Reaction Status Date / Time No Known Drug Allergies Allergy Verified 01/01/20 17:39 - MEDICATIONS Home Medications: Ambulatory Orders Medication Instructions Recorded Confirmed Calcitonin [Fortical] 1 spray WING DAILY 01/02/20 01/02/20 Ferrous Sulfate 325 mg PO BID 01/02/20 01/02/20 Memantine HCl [Namenda] 10 mg PO BID 01/02/20 01/02/20 Omeprazole 40 mg PO DAILY 01/02/20 01/02/20 Sertraline [Zoloft] 50 mg PO DAILY 01/02/20 01/02/20 Acetaminophen [Tylenol Extra 1,000 mg PO BID #30 tablet 01/05/20 Strength] Alendronate [Fosamax] 70 mg PO Q7D #4 tablet 01/05/20 Aspirin [Babak] 325 mg PO BIDWM 30 Days #60 tablet 01/05/20 Calcium Carbonate 500 mg PO BID #60 tablet 01/05/20 Cholecalciferol (Vitamin D3) 1,250 mcg PO DAILY #15 capsule 01/05/20 [Vitamin D3] Senna [Senokot] 8.6 mg PO DAILY #14 tablet 01/05/20 oxyCODONE [Roxicodone] 5 mg PO Q4H PRN #20 tablet 01/05/20 - PHYSICAL EXAM AT DISCHARGE General Appearance: positive: No acute distress, Alert Eyes Bilateral: positive: Normal inspection ENT: positive: ENT inspection nml Neck: positive: Nml inspection Respiratory: positive: No respiratory distress. negative: Wheezes, Rales Cardiovascular: positive: Regular rate & rhythm, No murmur. negative: Tachycardia, Systolic murmur Abdomen: positive: Non-tender, No distention. negative: Tenderness Skin: positive: Warm, Dry, Other (Dressing in place over her right hip. No erythema.) Extremities: positive: No pedal edema, Other (She does have limited range of motion in the right hip. Distal pulses in her right extremity are intact) Neurologic/Psychiatric: positive: Other (She is oriented to self, location, year but not to month. No focal deficits on exam.). negative: Disoriented to person, Disoriented to place - LABS Result Diagrams: 01/04/20 06:00 01/04/20 06:00 - DIAGNOSTIC IMAGING Diagnostic Imaging Results: Final report reviewed - SEPSIS Current Stage of Sepsis: Ruled out - QUALITY (Female Hip Fx Only) Was patient sent home on osteoporosis medication?: Yes - FOLLOW UP Follow Up: She will need follow-up with orthopedics in 7 to 10 days. - TIME SPENT Time Spent in Discharge (Minutes): 35"
[2020-01-05 13:15] VITALS: BP 126/79
== END 2020-01-05 14:11 | DRG 470 ==
LOC: ED 17:36 → MS3 19:36 → MS2 01-03 14:38
PROVIDERS: ADMIT Family Medicine Sports Medicine; ATTEND Internal Medicine
PROC: 0SRR01A Replacement of Right Hip Joint, Femoral Surface with Metal Synthetic Substitute, Uncemented, Open Approach (ICD-10-PCS; principal; 2020-01-02 15:30)
DX: S72.011A Unspecified intracapsular fracture of right femur, initial encounter for closed fracture (principal); M80.051A Age-related osteoporosis with current pathological fracture, right femur, initial encounter for fracture; D64.9 Anemia, unspecified; F03.90 Unspecified dementia, unspecified severity, without behavioral disturbance, psychotic disturbance, mood disturbance, and anxiety; K21.9 Gastro-esophageal reflux disease without esophagitis; E87.6 Hypokalemia; Z91.81 History of falling; Z66 Do not resuscitate; Z79.899 Other long term (current) drug therapy; W10.9XXA Fall (on) (from) unspecified stairs and steps, initial encounter; Y92.009 Unspecified place in unspecified non-institutional (private) residence as the place of occurrence of the external cause; Z11.59 Encounter for screening for other viral diseases; Z22.39 Carrier of other specified bacterial diseases
CPT/HCPCS: 36415; 73502; 80048; 80053; 81001; 82306; 83690; 83735; 85014; 85018; 85025; 85027; 85610; 86850; 86900; 86901; 87077; 87086; 87181; 93005; 97162; 97166; 97530; 99283; 99285; A9270; J0131; J1650; J2795; J3010; J7120; U0004; 81599

== ENCOUNTER 2020-01-05 14:15 | Outpatient (CLI) | payer MEDICARE, BC | END 2020-01-05 14:16 | LOC: EMS 14:15 | PROVIDERS: ATTEND Surgery | DX: S72.001A Fracture of unspecified part of neck of right femur, initial encounter for closed fracture (principal); E87.6 Hypokalemia; D72.829 Elevated white blood cell count, unspecified; Z74.01 Bed confinement status | CPT/HCPCS: A0425; A0428 ==

== ENCOUNTER 2020-01-30 11:20 | Outpatient (CLI) | payer MEDICARE, BC ==
--- NOTE | 2020-01-30 18:46 | XRAY Report ---
PROCEDURE: Chest 2 View X-Ray INDICATIONS: ADVENTITIOUS BREATH SOUNDS TECHNIQUE: 2 view(s) of the chest. COMPARISON: None. FINDINGS: Surgical changes and devices: None. Lungs and pleura: No pleural effusions or pneumothorax. Lungs are clear. Mediastinum: Mediastinal contours are normal. Heart size is normal. Bones and chest wall: No suspicious bony abnormalities. Soft tissues appear unremarkable. IMPRESSION: No acute process. Reviewed by: Franky Mahoney MD on 01/30/2020 6:45 PM PDT Approved by: Franky Mahoney MD on 01/30/2020 6:45 PM PDT Station ID: [id number]
== END 2020-01-30 11:21 | disposition home or self-care (01) ==
LOC: DI 11:20
PROVIDERS: ATTEND Family Medicine
DX: R09.89 Other specified symptoms and signs involving the circulatory and respiratory systems (principal)
CPT/HCPCS: 71046

== ENCOUNTER 2020-02-27 08:00 | Outpatient (CLI) | payer MEDICARE, BC ==
[2020-02-27 20:35] LABS: BASOPHILS # (AUTO) 0.1 10^3/uL (0.0-0.1); BASOPHILS % (AUTO) 0.8 %; EOSINOPHILS # (AUTO) 0.2 10^3/uL (0.0-0.7); EOSINOPHILS % (AUTO) 2.3 %; HGB - HEMOGLOBIN 11.6 g/dL (12.0-16.0); LYMPHOCYTES # (AUTO) 1.1 10^3/uL (1.5-3.5); LYMPHOCYTES % (AUTO) 16.8 %; MEAN CORPUSCULAR HGB CONC 31.9 g/dL (32.0-36.0); MEAN CORPUSCULAR VOLUME 100.3 fL (81.0-99.0); MEAN PLATELET VOLUME 11.1 fL (7.9-10.8); MONOCYTES # (AUTO) 0.5 10^3/uL (0.0-1.0); MONOCYTES % (AUTO) 7.4 %; NEUTROPHILS # (AUTO) 4.8 10^3/uL (1.5-6.6); NEUTROPHILS % (AUTO) 72.4 %; PLT - PLATELET COUNT 256 10^3/uL (130-450); RED BLOOD COUNT 3.63 10^6/uL (4.20-5.40); RED CELL DISTRIBUTION WIDTH 13.1 % (12.0-15.0); WHITE BLOOD COUNT 6.7 x10^3/uL (4.8-10.8)
[2020-02-27 20:36] LABS: CALCIUM 9.4 mg/dL (8.5-10.3); CREATININE 0.8 mg/dL (0.4-1.0)
== END 2020-02-27 23:59 | disposition home or self-care (01) ==
LOC: LAB.R 08:00
PROVIDERS: ATTEND Family Medicine
DX: R60.9 Edema, unspecified (principal); D64.9 Anemia, unspecified
CPT/HCPCS: 80048; 85025

== ENCOUNTER 2020-02-28 19:45 | Outpatient (CLI) | payer MEDICARE, BC ==
[2020-02-28 20:17] LABS: BASOPHILS # (AUTO) 0.1 10^3/uL (0.0-0.1); BASOPHILS % (AUTO) 0.8 %; EOSINOPHILS # (AUTO) 0.2 10^3/uL (0.0-0.7); EOSINOPHILS % (AUTO) 2.6 %; HGB - HEMOGLOBIN 12.2 g/dL (12.0-16.0); LYMPHOCYTES % (AUTO) 15.5 %; MEAN CORPUSCULAR HEMOGLOBIN 32.4 pg (27.0-31.0); MEAN CORPUSCULAR HGB CONC 32.5 g/dL (32.0-36.0); MEAN CORPUSCULAR VOLUME 99.5 fL (81.0-99.0); MEAN PLATELET VOLUME 10.7 fL (7.9-10.8); MONOCYTES # (AUTO) 0.5 10^3/uL (0.0-1.0); MONOCYTES % (AUTO) 8.2 %; NEUTROPHILS # (AUTO) 4.7 10^3/uL (1.5-6.6); NEUTROPHILS % (AUTO) 72.6 %; PLT - PLATELET COUNT 246 10^3/uL (130-450); RED BLOOD COUNT 3.77 10^6/uL (4.20-5.40); RED CELL DISTRIBUTION WIDTH 13.2 % (12.0-15.0); WHITE BLOOD COUNT 6.5 x10^3/uL (4.8-10.8)
[2020-02-28 20:29] LABS: ALBUMIN 4.4 g/dL (3.2-5.5); ALBUMIN/GLOBULIN RATIO 1.8 (1.0-2.2); BILIRUBIN,TOTAL 0.4 mg/dL (0.2-1.0); CALCIUM 9.4 mg/dL (8.5-10.3); CREATININE 0.9 mg/dL (0.4-1.0); TOTAL PROTEIN 6.8 g/dL (6.7-8.2)
== END 2020-02-28 23:59 | disposition home or self-care (01) ==
LOC: EMS 19:45
DX: R60.9 Edema, unspecified (principal); D64.9 Anemia, unspecified
CPT/HCPCS: 80053; 85025

== ENCOUNTER 2020-04-08 19:14 | Outpatient (CLI) | payer MEDICARE, BC ==
--- NOTE | 2020-04-09 09:37 | HISTORY & PHYSICAL EXAMINATION ---
HPI - History Obtained From History obtained from: Patient, Family - History of Present Illness HPI Comment/Other: This is a 77-year-old woman who was admitted to the hospital last night following a fall at home. She is residing with her daughter. She stumbled on the driveway and fell onto her left side with pain mostly to the left upper thigh and to a lesser degree left elbow. The fall occurred just prior to admission. She denies chest pain, shortness of breath, dizziness or loss of consciousness associated with the fall. She had a hip fracture to the opposite right hip in December and underwent a hemiarthroplasty of the right hip on 01/02/2020 and I was the surgeon for that procedure. She has done very well with her right hip since the surgery and has been going to physical therapy. She is also been placed on medication for osteoporosis since her last hospitalization as well. She does have declining health and dementia but was making improvement since her right hip fracture. PMH/PSH - Past Medical History Cardiovascular: positive: None Respiratory: positive: None Neuro: positive: Dementia, Headaches, Migraines Endocrine/Autoimmune: positive: None GI: positive: GERD SWITCH OPERATOR: positive: None : positive: None HEENT: positive: None Psych: positive: None Musculoskeletal: positive: Osteoporosis Derm: positive: None MRSA Hx?: No - Past Surgical History /SWITCH OPERATOR: positive: Tubal ligation HEENT: positive: Tonsil/Adenoidectomy Social & Family Hx - Social History Does the pt smoke?: No Smoking Status: Never smoker Does the pt drink ETOH?: No Does the pt have substance abuse?: No - POLST Patient has POLST: Yes POLST Status: DNR Meds/Allgy - Home Medications Home Medications: Ambulatory Orders Medication Instructions Recorded Confirmed Ferrous Sulfate 325 mg PO BID 01/02/20 01/02/20 Memantine HCl [Namenda] 10 mg PO BID 01/02/20 01/02/20 Sertraline [Zoloft] 50 mg PO DAILY 01/02/20 01/02/20 - Allergies Allergies/Adverse Reactions: Allergies Allergy/AdvReac Type Severity Reaction Status Date / Time No Known Drug Allergies Allergy Verified 01/01/20 17:39 Exam - Physical Exam General Appearance: positive: Mild distress Eyes Bilateral: positive: Normal inspection ENT: positive: ENT inspection nml Neck: positive: Nml inspection Respiratory: positive: No respiratory distress Cardiovascular: positive: Regular rate & rhythm Peripheral Pulses: positive: 2+ Abdomen: positive: Non-tender Skin: positive: Color nml Extremities: negative: Other (There is painful and limited movement of left hip, no significant rotational deformity is present. Skin is intact. There is no thigh hematoma on the left side. Hip incision on the right side is well-healed with no pain on range of motion of right hip. Left elbow shows mild swelling and tendernes) Results - Diagnostic Imaging Results Diagnostic Imaging Results: negative: Read independently (There is a valgus impacted femoral neck fracture left hip and a nondisplaced radial head fracture left elbow) Impression/Plan - Problem List Problem List: 1. Displaced femoral neck fracture left hip Plan is a left hip hemiarthroplasty. She had similar procedure to the right hip in December 2019 and has had good outcome 2. Nondisplaced radial head fracture left elbow This can be treated conservatively in a splint for a week and then range of motion to left elbow can be started. I discussed the risk, goals and alternatives with the patient's daughter including disability and . Both general and procedure specific risks were discussed. The daughter has agreed to the surgery, has power of corporate associate attorney; questions were encouraged and answered. She seems to have an understanding of the procedure.
== END 2020-04-08 19:15 | disposition critical access hospital (66) ==
LOC: EMS 19:14
PROVIDERS: ATTEND Surgery
DX: M25.552 Pain in left hip (principal); M25.562 Pain in left knee; W01.0XXA Fall on same level from slipping, tripping and stumbling without subsequent striking against object, initial encounter; Y93.01 Activity, walking, marching and hiking; Y92.481 Parking lot as the place of occurrence of the external cause
CPT/HCPCS: A0425; A0429

== ENCOUNTER 2020-04-12 13:20 | Outpatient (CLI) | payer MEDICARE, BC | END 2020-04-12 13:21 | disposition home or self-care (01) | LOC: EMS 13:20 | PROVIDERS: ATTEND Surgery | DX: S72.001A Fracture of unspecified part of neck of right femur, initial encounter for closed fracture (principal); W19.XXXA Unspecified fall, initial encounter; F03.90 Unspecified dementia, unspecified severity, without behavioral disturbance, psychotic disturbance, mood disturbance, and anxiety; R41.0 Disorientation, unspecified; Z74.01 Bed confinement status | CPT/HCPCS: A0425; A0428 ==

== ENCOUNTER 2020-05-20 08:00 | Outpatient (CLI) | payer MEDICARE, BC ==
[2020-05-20 20:26] LABS: BASOPHILS # (AUTO) 0.1 10^3/uL (0.0-0.1); BASOPHILS % (AUTO) 0.7 %; EOSINOPHILS # (AUTO) 0.2 10^3/uL (0.0-0.7); LYMPHOCYTES # (AUTO) 1.2 10^3/uL (1.5-3.5); LYMPHOCYTES % (AUTO) 12.3 %; MEAN CORPUSCULAR HEMOGLOBIN 31.7 pg (27.0-31.0); MEAN CORPUSCULAR HGB CONC 32.2 g/dL (32.0-36.0); MEAN CORPUSCULAR VOLUME 98.7 fL (81.0-99.0); MEAN PLATELET VOLUME 10.5 fL (7.9-10.8); MONOCYTES # (AUTO) 0.7 10^3/uL (0.0-1.0); MONOCYTES % (AUTO) 7.5 %; NEUTROPHILS # (AUTO) 7.2 10^3/uL (1.5-6.6); NEUTROPHILS % (AUTO) 76.9 %; PLT - PLATELET COUNT 303 10^3/uL (130-450); RED BLOOD COUNT 3.15 10^6/uL (4.20-5.40); RED CELL DISTRIBUTION WIDTH 14.4 % (12.0-15.0); WHITE BLOOD COUNT 9.4 x10^3/uL (4.8-10.8)
[2020-05-20 20:34] LABS: CALCIUM 8.9 mg/dL (8.5-10.3); CREATININE 0.8 mg/dL (0.4-1.0)
== END 2020-05-20 23:59 | disposition home or self-care (01) ==
LOC: LAB.R 08:00
PROVIDERS: ATTEND Internal Medicine
DX: D64.9 Anemia, unspecified (principal)
CPT/HCPCS: 80048; 85025

== ENCOUNTER 2020-05-25 08:00 | Outpatient (CLI) | payer MEDICARE, BC ==
[2020-05-25 15:50] LABS: BILIRUBIN,URINE NEGATIVE (NEGATIVE); GLUCOSE, URINE (UA) NEGATIVE (NEGATIVE); KETONES,URINE (UA) NEGATIVE (NEGATIVE); LEUKOCYTE ESTERASE, URINE MODERATE (NEGATIVE); NITRITE,URINE POSITIVE (NEGATIVE); OCCULT BLOOD,URINE LARGE (NEGATIVE); PH,URINE >=9.0 PH (5.0-7.5); PROTEIN,URINE 100 mg/dL (NEGATIVE); UROBILINOGEN,URINE 1 (NORMAL) E.U./dL (NORMAL)
[2020-05-25 16:03] LABS: BACTERIA,URINE Many /HPF (None Seen); CLARITY,URINE CLOUDY (CLEAR); SQUAMOUS EPITHELIAL CELL,UR NONE SEEN (<= Few)
[2020-05-25 16:04] LABS: CRYSTALS,URINE 0-2 Triple Phosphate /LPF
== END 2020-05-25 23:59 | disposition home or self-care (01) ==
LOC: LAB.R 08:00
PROVIDERS: ATTEND Internal Medicine
DX: N39.0 Urinary tract infection, site not specified (principal)
CPT/HCPCS: 81001; 87077; 87086; 87181

== ENCOUNTER 2020-06-10 06:45 | Outpatient (CLI) | payer MEDICARE, BC ==
[2020-06-10 09:30] LABS: BASOPHILS # (AUTO) 0.1 10^3/uL (0.0-0.1); BASOPHILS % (AUTO) 0.7 %; EOSINOPHILS # (AUTO) 0.3 10^3/uL (0.0-0.7); EOSINOPHILS % (AUTO) 2.7 %; HGB - HEMOGLOBIN 10.4 g/dL (12.0-16.0); LYMPHOCYTES % (AUTO) 8.3 %; MEAN CORPUSCULAR HEMOGLOBIN 30.5 pg (27.0-31.0); MEAN CORPUSCULAR HGB CONC 31.6 g/dL (32.0-36.0); MEAN CORPUSCULAR VOLUME 96.5 fL (81.0-99.0); MEAN PLATELET VOLUME 10.5 fL (7.9-10.8); MONOCYTES # (AUTO) 0.6 10^3/uL (0.0-1.0); MONOCYTES % (AUTO) 5.1 %; NEUTROPHILS # (AUTO) 9.4 10^3/uL (1.5-6.6); NEUTROPHILS % (AUTO) 82.4 %; PLT - PLATELET COUNT 342 10^3/uL (130-450); RED BLOOD COUNT 3.41 10^6/uL (4.20-5.40); RED CELL DISTRIBUTION WIDTH 14.3 % (12.0-15.0); WHITE BLOOD COUNT 11.4 x10^3/uL (4.8-10.8)
== END 2020-06-10 23:59 | disposition home or self-care (01) ==
LOC: LAB.R 06:45
DX: D64.9 Anemia, unspecified (principal); S72.002D Fracture of unspecified part of neck of left femur, subsequent encounter for closed fracture with routine healing; F05 Delirium due to known physiological condition
CPT/HCPCS: 85025; 87040

== ENCOUNTER 2020-06-15 09:37 | Outpatient (CLI) | payer MEDICARE, BC | END 2020-06-15 09:38 | disposition home or self-care (01) | LOC: DI 09:37 | PROVIDERS: ATTEND Internal Medicine | DX: I95.9 Hypotension, unspecified (principal); I08.0 Rheumatic disorders of both mitral and aortic valves | CPT/HCPCS: 93306 ==

== ENCOUNTER 2021-04-01 08:00 | Outpatient (CLI) | payer MEDICARE, BC | END 2021-04-01 23:59 | disposition home or self-care (01) | LOC: LAB.S 08:00 | PROVIDERS: ATTEND Physician Assistant Medical | DX: R30.0 Dysuria (principal) | CPT/HCPCS: 87086 ==

== ENCOUNTER 2021-11-27 07:44 | Outpatient (CLI) | payer MEDICARE, BC | END 2021-11-27 07:45 | disposition EMS.NT | LOC: EMS 07:44 | DX: Z04.3 Encounter for examination and observation following other accident (principal) ==

== ENCOUNTER 2021-12-22 09:44 | Outpatient (CLI) | payer MEDICARE, BC | END 2021-12-22 23:59 | disposition EMS.NT | LOC: EMS 09:44 | DX: R47.9 Unspecified speech disturbances (principal); R53.1 Weakness ==

== ENCOUNTER 2021-12-22 11:09 | Observation (INO) | payer MEDICARE, BC ==
--- NOTE | 2021-12-22 11:32 | ED Physician Documentation ---
PD HPI FOCAL NEURO - Stated complaint Stated Complaint: SLURR SPEACH/MUSCLE WEAKNESS - History obtained from History obtained from: Patient, Family (daughter) - Additional information Additional information: 81-year-old woman with history of stroke and TIA require some help at home because of prior hip fractures and so at baseline needs some help with transferring and her daughter does that. She also has a history of dementia although the patient denies this the daughter says she does. She is not on aspirin, unclear why, given that it is not for primary prophylaxis given history of stroke. She woke this morning at 8 AM with slurred speech, unintelligible language and a left facial droop. The symptoms are persistent but definitely better per the daughter. She went to bed around 8 or 9 last night. She is not anticoagulated. No recent trauma. No headache. Review of Systems Unable to obtain: Dementia PD PAST MEDICAL HISTORY - Past Medical History Cardiovascular: None Respiratory: None Neuro: Dementia, Headaches, Migraines Endocrine/Autoimmune: None GI: GERD (controlled on medication) FACTORY ASSEMBLER: None : None HEENT: None Psych: None Musculoskeletal: Osteoporosis Derm: None - Past Surgical History Past Surgical History: No Ortho: Other /FACTORY ASSEMBLER: Tubal ligation HEENT: Tonsil/Adenoidectomy - Present Medications Home Medications: Ambulatory Orders Medication Instructions Recorded Confirmed Acetaminophen [Tylenol] 650 - 975 mg PO Q4HR PRN tablet 04/12/20 Aspirin [Babak] 325 mg PO BIDWM tablet 04/12/20 Calcium Carb (Oyster Shell) 500 mg PO TID tablet 04/12/20 [Oysco-500] Cholecalciferol [Vitamin D3] 800 unit PO DAILY tablet 04/12/20 Cyanocobalamin (Vitamin B-12) 500 mcg PO DAILY #0 04/12/20 04/11/20 [Vitamin B-12] Ferrous Gluconate [Iron] 240 mg PO DAILY #0 04/12/20 04/10/20 Melatonin 3 mg PO QPM #0 04/12/20 04/10/20 Memantine HCl [Namenda] 10 mg PO BID #0 04/12/20 04/10/20 Sertraline [Zoloft] 50 mg PO DAILY #0 04/12/20 04/10/20 oxyCODONE [Roxicodone] 5 mg PO Q4HR PRN #30 tablet 04/12/20 - Allergies Allergies/Adverse Reactions: Allergies Allergy/AdvReac Type Severity Reaction Status Date / Time No Known Drug Allergies Allergy Verified 12/22/21 11:30 - Social History Does the pt smoke?: No Smoking Status: Never smoker Does the pt drink ETOH?: No Does the pt have substance abuse?: No - Immunizations Immunizations are current?: No Immunizations: TDAP >10years/unknown - POLST Patient has POLST: Yes POLST Status: DNR PD ED PE NORMAL - Vitals Vital signs reviewed: Yes - General General: No acute distress, Other (She is alert and oriented to person and place, mediocre for events. States the month is June and cannot come up with the year.) - HEENT HEENT: PERRL, EOMI, Other (Mild left facial droop) - Neck Neck: Supple, no meningeal sign, No bony TTP - Cardiac Cardiac: RRR, No murmur - Respiratory Respiratory: No respiratory distress, Clear bilaterally - Abdomen Abdomen: Normal bowel sounds, Soft, Non tender - Derm Derm: Normal color, Warm and dry - Neuro Neuro: No sensory deficit, Other (No pronator drift arms or legs) Eye Opening: Spontaneous Motor: Obeys Commands Verbal: Confused GCS Score: 14 NIHSS - Time Time: 11:25 - Level of Consciousness Level of consciousness: (0) Alert, Keenly responsive LOC Questions: (2) Answers neither correct LOC Commands: (0) Performs both correctly - Gaze Best Gaze: (0) Normal - Visual Visual: (0) No loss - Facial Palsy Facial Palsy: (1) Minor paralysis (Left side) - Motor Arms (both separate) Motor Arm (right): (0) No drift Motor Arm (left): (0) No drift - Motor Legs (both separate) Motor Leg (right): (0) No drift Motor Leg (left): (0) No drift - Limb Ataxia Limb Ataxia: (0) Absent - Sensory Sensory: (0) Normal - Best Language Best Language: (0) No aphasia - Dysarthria Dysarthria: (0) Normal - Extinction and Inattention (formally neg Extinction and inattention: (0) No abnormality - Total Score/Results Total Score/Result: 3 Results - Vitals Vitals: Vital Signs - 24 hr 12/22/21 12/22/21 12/22/21 11:19 12:13 12:47 Temperature 37.2 C Heart Rate 81 64 67 Respiratory 17 12 15 Rate Blood Pressure 106/62 134/77 H 131/79 H O2 Saturation 100 98 99 Oxygen O2 Source [] Nasal cannula O2 Source Room air - EKG (time done) 1139 Rate: Rate (enter#) (78) Rhythm: NSR Hurley: LAD QRS: Normal Ischemia: Non specific changes - Labs Labs: Laboratory Tests 12/22/21 12/22/21 12/22/21 11:30 11:40 12:08 WBC 8.1 RBC 4.27 Hgb 12.8 Hct 39.9 MCV 93.4 MCH 30.0 MCHC 32.1 RDW 15.4 H Plt Count 214 MPV 10.7 Neut # (Auto) 6.1 Lymph # (Auto) 1.1 L [place] # (Auto) 0.6 Eos # (Auto) 0.2 Baso # (Auto) 0.1 Absolute Nucleated RBC 0.00 Nucleated RBC % 0.0 PT 12.9 H INR 1.2 Sodium 138 Potassium 4.2 Chloride 102 Carbon Dioxide 25 Anion Gap 11.0 BUN 20 Creatinine 1.0 Estimated GFR (MDRD) 53 L Glucose 105 H Calcium 9.4 Total Bilirubin 0.6 AST 15 ALT 10 Alkaline Phosphatase 60 Total Protein 7.7 Albumin 4.1 Globulin 3.6 Albumin/Globulin Ratio 1.1 PD MEDICAL DECISION MAKING - ED course ED course: 81-year-old woman presents with strokelike symptoms. Daughter at the bedside. I discussed that given the unclear time of onset, improving symptoms I do not think she is a good tPA candidate. 81-year-old woman presents with stroke syndrome with slurred speech and unintelligible speech with a left facial droop. Her symptoms had since resolved significantly on the way here and her speech at the time of admission is c ompletely normal she still has mild left facial droop. Spoke with Dr. Rivas hein for admission at 1:41 PM. Aspirin given. Departure - Departure Disposition: ED Place in Observation Clinical Impression: Cerebrovascular accident (CVA) Condition: Good
[2021-12-22 11:44] LABS: BASOPHILS # (AUTO) 0.1 10^3/uL (0.0-0.1); BASOPHILS % (AUTO) 0.9 %; EOSINOPHILS # (AUTO) 0.2 10^3/uL (0.0-0.7); EOSINOPHILS % (AUTO) 2.6 %; HCT - HEMATOCRIT 39.9 % (37.0-47.0); HGB - HEMOGLOBIN 12.8 g/dL (12.0-16.0); LYMPHOCYTES # (AUTO) 1.1 10^3/uL (1.5-3.5); LYMPHOCYTES % (AUTO) 13.3 %; MEAN CORPUSCULAR HGB CONC 32.1 g/dL (32.0-36.0); MEAN CORPUSCULAR VOLUME 93.4 fL (81.0-99.0); MEAN PLATELET VOLUME 10.7 fL (7.9-10.8); MONOCYTES # (AUTO) 0.6 10^3/uL (0.0-1.0); MONOCYTES % (AUTO) 7.5 %; NEUTROPHILS # (AUTO) 6.1 10^3/uL (1.5-6.6); NEUTROPHILS % (AUTO) 75.3 %; PLT - PLATELET COUNT 214 10^3/uL (130-450); RED BLOOD COUNT 4.27 10^6/uL (4.20-5.40); RED CELL DISTRIBUTION WIDTH 15.4 % (12.0-15.0); WHITE BLOOD COUNT 8.1 x10^3/uL (4.8-10.8)
[2021-12-22 11:56] LABS: ALBUMIN 4.1 g/dL (3.2-5.5); ALBUMIN/GLOBULIN RATIO 1.1 (1.0-2.2); BILIRUBIN,TOTAL 0.6 mg/dL (0.2-1.0); CALCIUM 9.4 mg/dL (8.5-10.3); POTASSIUM 4.2 mmol/L (3.5-5.0); TOTAL PROTEIN 7.7 g/dL (6.7-8.2)
--- NOTE | 2021-12-22 12:03 | CT Report ---
PROCEDURE: Head W/O Stroke Protocol INDICATIONS: CVA symptoms TECHNIQUE: Noncontrast 4.5 mm thick angled axial sections acquired from the foramen magnum to the vertex, with c oronal reformats. For radiation dose reduction, the following was used: automated exposure control, adjustment of mA and/or kV according to patient size. COMPARISON: FINDINGS: Image quality: Excellent. CSF spaces: Basal cisterns are patent. No extra-axial fluid collections. Ventricles are normal in size and shape. Brain: Mild global cerebral volume loss and chronic microvascular ischemic changes. No midline shift. No intracranial masses or hemorrhage. [place]-white matter interface is normal. Skull and face: Calvarium and visualized facial bones are intact, without suspicious lesions. Sinuses: Visualized sinuses and mastoids are clear. IMPRESSION: No acute intracranial abnormality. No gross CT evidence of acute large territory infarct. This study fulfills neurological imaging criteria for inclusion or exclusion of acute stroke therapie s based on available published neurological imaging guidelines. Findings were discussed with Dr. Armando at time of dictation. Reviewed by: Stevan Dominique MD on 12/22/2021 12:01 PM PDT Approved by: Stevan Dominique MD on 12/22/2021 12:01 PM PDT Station ID: [id number]
[2021-12-22] MEDS ORDERED: IOPAMIDOL-300 100 ML VIAL IVP ONE (12:05)
[2021-12-22 12:23] LABS: INR 1.2 (0.8-1.2); PT - PROTHROMBIN TIME 12.9 secs (9.9-12.6)
[2021-12-22] MEDS ORDERED: IOPAMIDOL-300 100 ML VIAL ONE (12:36)
--- NOTE | 2021-12-22 13:26 | CT Report ---
PROCEDURE: ANGIO HEAD W/WO INDICATIONS: CVA sx CONTRAST: IV CONTRAST: Isovue 300 ml: 80 PO CONTRAST: *NO PO CONTRAST TECHNIQUE: Precontrast 4.5 mm thick angled axial sections acquired from the foramen magnum to the vertex. Afte r the administration of intravenous contrast, 1 mm thick sections acquired through the [place] of [place] is. Postcontrast 4.5 mm thick sections then re-acquired from the foramen magnum to the vertex. 3-di mensional ftstido-kktxwqtaq-gckkbayyah (MIP) and/or volume rendering reformats were acquired of the c entral intracranial vasculature. For radiation dose reduction, the following was used: automated ex posure control, adjustment of mA and/or kV according to patient size. COMPARISON: CT head 12/22/2021, CTA neck 12/22/2021 FINDINGS: Image quality: Excellent. Anterior circulation: Intracranial internal carotid arteries are normal in size and flow. The flow within the paired anterior cerebral arteries is normal and symmetric. The flow within the middle cer ebral arteries is normal and symmetric. The anterior communicating artery is seen. No aneurysms are seen. Posterior circulation: Visualized portions of the vertebral arteries demonstrate normal caliber, and join to form a normal appearing basilar artery. Flow within the posterior cerebral arteries is norm al and symmetric. No aneurysms are seen. Brain: The ventricular system and cortical sulci demonstrate atrophy, consistent for patient's stated age. There are areas of hypodensity in the periventricular and subcortical white matter. There is no acute intra or extra-axial fluid collection. No acute hemorrhage, mass lesion or midline shift. Brainstem is unremarkable. Globes are symmetrical. Sinuses are aerated. Osseous structures are intac t. IMPRESSION: 1. No acute intracranial process. 2. Moderate atrophy and chronic microvascular ischemic changes. 3. No areas of hemodynamically significant stenosis, vascular occlusion or aneurysmal dilation within the anterior or posterior circulation. Reviewed by: Mary Ibrahim MD on 12/22/2021 12:24 PM TENZIN Approved by: Mary Ibrahim MD on 12/22/2021 12:24 PM TENZIN Station ID: [id number]
--- NOTE | 2021-12-22 13:28 | CT Report ---
PROCEDURE: ANGIO NECK W INDICATIONS: CVA sx CONTRAST: IV CONTRAST: Isovue 300 ml: 80 PO CONTRAST: *NO PO CONTRAST TECHNIQUE: After the administration of intravenous contrast, 1.5 mm axial sections acquired from the aortic arch to the [place] of [place]. Coronal 3-D maximum intensity projection (MIP) and/or volume rendering ref ormats were then performed. For radiation dose reduction, the following was used: automated exposur e control, adjustment of mA and/or kV according to patient size. COMPARISON: CTA head 12/22/2021, CTA head 12/22/2021 FINDINGS: Image quality: Excellent. Carotid system: The great vessels demonstrate a conventional anatomy as they arise from the aortic a rch. The origins of the common carotid arteries appear patent. The common carotid arteries demonstr ate normal calibers and courses. The bifurcation regions appear normal bilaterally. The internal ca rotid arteries demonstrate normal caliber and course. Posterior circulation: The origins of the vertebral arteries appear patent. The more superior porti ons of the vertebral arteries demonstrate normal course and caliber. They join to form a normal appe aring basilar artery. Soft tissues: Visualized neck soft tissues demonstrate no suspicious abnormalities. Thyroid gland i s enlarged and overall heterogeneous in appearance with multiple foci of low-attenuation. Bones: No suspicious bony lesions. Visualized cervical spine appears normally aligned. IMPRESSION: There are no areas of hemodynamically significant stenosis, vascular occlusion or aneurysmal dilation within the neck vasculature. Enlarged heterogeneous thyroid. Thyroid ultrasound is recommended for further evaluation on a nonemer gent basis. The estimate of stenosis included in the report of the imaging study was calculated using the NASCET method CLINICAL RECOMMENDATION STATEMENTS: In patients <35 years with an ITN detected on CT, MRI, or extrathyroidal ultrasound, the Committee re commends further evaluation with dedicated thyroid ultrasound if the nodule is "e1 cm and has no susp icious imaging features, and if the patient has normal life expectancy. In patients "e35 years with an ITN detected on CT, MRI, or extrathyroidal ultrasound, the Committee r ecommends further evaluation with dedicated thyroid ultrasound if the nodule is "e1.5 cm and has no s uspicious imaging features, and if the patient has normal life expectancy. (ACR, 2014) Reviewed by: Mary Ibrahim MD on 12/22/2021 12:26 PM AKDT Approved by: Mayr Ibrahim MD on 12/22/2021 12:26 PM MSDAVION Station ID: [id number]
[2021-12-22] MEDS ORDERED: ASPIRIN 325 MG TABLET PO STA (13:39)
[2021-12-22] MEDS ORDERED: SODIUM CHLORIDE FLUSH 0.9% 10 ML SYRINGE IVP PRN (13:43)
[2021-12-22] MEDS ORDERED: ACETAMINOPHEN 325 MG TABLET PO PRN (13:43)
[2021-12-22] MEDS ORDERED: ONDANSETRON 4 MG/2 ML VIAL IVP PRN (13:43)
--- NOTE | 2021-12-22 13:53 | HISTORY & PHYSICAL EXAMINATION ---
Chief Complaint - Chief Complaint Chief Complaint: slurred speech History of Present Illness - Admitted From Admitted From:: [facility] ED - History Obtained From Records Reviewed: yes History obtained from: patient and daughter - History of Present Illness HPI Comment/Other: Patient is an 81-year-old female who presented to the ED with slurred speech. This was noticed by her daughter when she woke up this morning. She denied any facial droop, vision loss, headaches or any localized weakness. By the time she presented to the ED her symptoms had improved/resolved. Work-up in the ED included a CT head, CT angio head and neck which was negative for any acute intracranial process but showed moderate atrophy and chronic microvascular isch emic changes. She is presented for admission for further work-up of TIA versus CVA to include an MRI. At bedside she is resting comfortably. She is fully alert awake and oriented. She is able to answer questions without any difficulties. She denies chest pain, dyspnea, abdominal pain, nausea, vomiting, fever or chills. At baseline she is wheelchair-bound. She is able to feed herself and comb her hair but requires some assistance with dressing. She lives with her daughter. History - Past Medical History Cardiovascular: reports: None Respiratory: reports: None Neuro: reports: Dementia, Headaches, Migraines Endocrine/Autoimmune: reports: None GI: reports: GERD (controlled on medication) PRODUCTION SORTER: reports: None : reports: None HEENT: reports: None Psych: reports: None Musculoskeletal: reports: Osteoporosis Derm: reports: None MRSA Hx?: No - Past Surgical History Ortho: reports: Other /PRODUCTION SORTER: reports: Tubal ligation HEENT: reports: Tonsil/Adenoidectomy - Family & Social History Family History Comment/Other: She reports her mother had sigmoid cancer. Her father had coronary artery disease. Social History Notes: Patient currently lives at home with her daughter, Lashonda and son-in-law. She smoked a pack a week from the age of [age] but has not smoked since then. She drinks a small amount of white wine on a daily basis. 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 - Substance History Use: Uses substance without health or social issues: NONE - POLST Patient has POLST: Yes POLST Status: Full Code Meds/Allgy - Home Medications Home Medications: Ambulatory Orders Medication Instructions Recorded Confirmed Acetaminophen [Tylenol] 650 - 975 mg PO Q4HR PRN tablet 04/12/20 Aspirin [Babak] 325 mg PO BIDWM tablet 04/12/20 Calcium Carb (Oyster Shell) 500 mg PO TID tablet 04/12/20 [Oysco-500] Cholecalciferol [Vitamin D3] 800 unit PO DAILY tablet 04/12/20 Cyanocobalamin (Vitamin B-12) 500 mcg PO DAILY #0 04/12/20 04/11/20 [Vitamin B-12] Ferrous Gluconate [Iron] 240 mg PO DAILY #0 04/12/20 04/10/20 Melatonin 3 mg PO QPM #0 04/12/20 04/10/20 Memantine HCl [Namenda] 10 mg PO BID #0 04/12/20 04/10/20 Sertraline [Zoloft] 50 mg PO DAILY #0 04/12/20 04/10/20 oxyCODONE [Roxicodone] 5 mg PO Q4HR PRN #30 tablet 04/12/20 - Allergies Allergies/Adverse Reactions: Allergies Allergy/AdvReac Type Severity Reaction Status Date / Time No Known Drug Allergies Allergy Verified 12/22/21 11:30 Review of Systems - Constitutional Constitutional: denies: Fatigue, Fever, Weakness - Eyes Eyes: denies: Pain, Blurred vision, Vision loss, Dipolpia - Ears, Nose & Throat Ears, Nose & Throat: denies: Ear pain - Cardiovascular Cariovascular: denies: Irregular heart rate, Palpitations, Chest pain, Edema, Lightheadedness, Syncope - Respiratory Respiratory: denies: Cough, Sputum production, Wheezing, SOB at rest, SOB with exertion - Gastrointestinal Gastrointestinal: denies: Abdominal pain, Abdominal distention, Nausea, Vomiting - Genitourinary Genitourinary: denies: Dysuria, Frequency, Urgency, Hematuria - Musculoskeletal Musculoskeletal: denies: Muscle pain, Back pain, Muscle aches, Stiffness - Integumentary Integumentary: denies: Rash, Pruritis - Neurological Neurological: reports: Slurred speech. denies: General weakness, Focal weakness, Headache, Dizziness Prior Level of Functionality: At baseline she is wheelchair-bound. She is able to feed herself and comb her hair but requires some assistance with dressing. She lives with her daughter. Exam - Vital Signs Vital Signs: Vital Signs x48h Temp Pulse Resp BP Pulse Ox 12/22/21 12:47 67 15 131/79 H 99 12/22/21 12:13 64 12 134/77 H 98 12/22/21 11:19 37.2 C 81 17 106/62 100 - Physical Exam General Appearance: positive: No acute distress, Alert Eyes Bilateral: positive: PERRL, EOMI ENT: positive: No signs of dehydration Neck: positive: No JVD, Trachea midline Respiratory: positive: Chest non-tender, No respiratory distress, Breath sounds nml. negative: Wheezes, Rales, Rhonchi Cardiovascular: positive: Regular rate & rhythm, No murmur Abdomen: positive: Non-tender, No organomegaly, Nml bowel sounds, No distention. negative: Guarding, Rebound Back: positive: Nml inspection Skin: positive: Color nml, No rash, Warm, Dry Extremities: positive: Non-tender, Full ROM, Nml appearance, No pedal edema Neurologic/Psychiatric: positive: Oriented x3, Motor nml, Mood/affect nml. negative: Facial droop, Slurred/abnml speech Conclusion/Plan - Problem List (1) TIA (transient ischemic attack) Conclusion/Plan: Patient currently has no neurologic deficits. CT head, CT angio head and neck showed no acute intracranial process. MRI brain without contrast ordered. Neurochecks every shift. Lipid panel and hemoglobin A1c pending. Currently 2D echocardiogram is not available though was patient and her daughter have been advised to follow-up with a primary care physician upon discharge for a referral for a 2D echocardiogram in the outpatient setting. They expressed understanding. (2) Dementia Conclusion/Plan: Resume Moises. - Lab Results Fish Bones: 12/22/21 11:30 12/22/21 11:40 Core Measures - Anticipated LOS I expect patient to be DC'd or transferred within 96 hours.: Yes - DVT/VTE - Prophylaxis VTE/DVT Device ordered at admit?: Yes - AMI - Statin at Admit Aspirin Prescribed on Admit: Yes
[2021-12-22 17:06] LABS: B. PARAPERTUSSIS- RESP PCR PAN NOT DETECTED; B. PERTUSSIS- RESP PCR PANEL NOT DETECTED; C. PNEUMONIAE- RESP PCR PANEL NOT DETECTED; CORONAVIRUS 229E-RESP PCR NOT DETECTED; CORONAVIRUS HKU1-RESP PCR NOT DETECTED; CORONAVIRUS NL63-RESP PCR NOT DETECTED; CORONAVIRUS OC43-RESP PCR NOT DETECTED; HUMAN METAPNEUMOVIRUS NOT DETECTED; INFLUENZA A- RESP PCR PANEL NOT DETECTED; INFLUENZA B - RESP PCR PANEL NOT DETECTED; M. PNEUMONIAE- RESP PCR PANEL NOT DETECTED; PARAINFLUENZA VIRUS 1 NOT DETECTED; PARAINFLUENZA VIRUS 2 NOT DETECTED; PARAINFLUENZA VIRUS 3 NOT DETECTED; PARAINFLUENZA VIRUS 4 NOT DETECTED; RHINOVIRUS/ENTEROVIRUS NOT DETECTED; RSV- RESP PCR PANEL NOT DETECTED; SARS-CoV-2 -RESP PCR PANEL NOT DETECTED
[2021-12-22] MEDS: SODIUM CHLORIDE 0.9% 1,000 ML IV SCH (17:29)
[2021-12-22] MEDS: SODIUM CHLORIDE FLUSH 0.9% 10 ML SYRINGE IVP SCH (17:30)
--- NOTE | 2021-12-22 17:43 | MRI Report ---
PROCEDURE: Brain W/O INDICATIONS: CVA sx TECHNIQUE: Noncontrast axial T1 spin echo, axial T2 fast spin echo, sagittal and axial FLAIR, coronal T2 fast sp in echo, axial gradient echo, axial diffusion and ADC through the brain. COMPARISON: CT head 12/22/2021 FINDINGS: Image quality: Excellent. The ventricular system and cortical sulci demonstrate atrophy, consistent for patient's stated age. There are areas of hyperintense T2/FLAIR signal in the periventricular and subcortical white matter. There is no acute intra or extra-axial fluid collection. No acute hemorrhage, mass lesion or midlin e shift. Brainstem is unremarkable. There are no areas of restricted diffusion. Globes are symmetr ical. Sinuses are aerated. Osseous structures are intact. IMPRESSION: 1. No acute intracranial process. No acute ischemia. 2. Moderate atrophy and chronic microvascular ischemic changes. Reviewed by: Mary Ibrahim MD on 12/22/2021 4:41 PM TENZIN Approved by: Mary Ibrahim MD on 12/22/2021 4:41 PM AKDAVION Station ID: [id number]
--- NOTE | 2021-12-22 18:46 | PHARMACY PROGRESS NOTE ---
- Best Possible Medication History Admit Date and Time: 12/22/21 1441 Processed by: Pharmacy Medication History completed: Yes Patient Interview: Completed Secondary Source(s): Insurance records (PT states she is also on CBD "often", unknown product, dose and frequency.) As the person ultimately responsible for medication therapy, providers are able to order a medication from an existing home medication list in [facility] via the "Reconcile Routine" prior to Confirmation of that medication by peer support specialist. Such practice is discouraged except when the physician, in their clinical judgment, deems that a medical need exists for a medication without regard to previous use.
[2021-12-23] MEDS: SODIUM CHLORIDE FLUSH 0.9% 10 ML SYRINGE IVP SCH ×2 (00:27→08:45)
[2021-12-23] MEDS: SODIUM CHLORIDE 0.9% 1,000 ML IV SCH (03:07)
[2021-12-23 06:00] LABS: CHOL/HDL RATIO 2.6 (<4.4); CHOLESTEROL 153 mg/dL; HDL CHOLESTEROL 58 mg/dL; LDL CHOLESTEROL,CALCULATED 85 mg/dL; LDL/HDL RATIO 1.5 (<4.4); TRIGLYCERIDES 50 mg/dL; VLDL CHOLESTEROL 10 mg/dL
--- NOTE | 2021-12-23 07:24 | DISCHARGE SUMMARY ---
Discharge Summary Admit Date: 12/22/21 Discharge Date: 12/23/21 Discharging Provider: Navdeep Humphrey Primary Care Provider: Alfonzo Diaz Code Status: Attempt Resuscitation Condition at Discharge: Good Discharge Disposition: 01 Home, Self Care - DIAGNOSES Admission Diagnoses: TIA Dementia Discharge Diagnoses with Status of Each Condition: TIA: Acute. Resolved Dementia: Chronic - HPI History of Present Illness: Patient is an 81-year-old female who presented to the ED with slurred speech. This was noticed by her daughter when she woke up this morning. She denied any facial droop, vision loss, headaches or any localized weakness. By the time she presented to the ED her symptoms had improved/resolved. Work-up in the ED included a CT head, CT angio head and neck which was negative for any acute intracranial process but showed moderate atrophy and chronic microvascular ischemic changes. She is presented for admission for further work-up of TIA versus CVA to include an MRI. At bedside she is resting comfortably. She is fully alert awake and oriented. She is able to answer questions without any difficulties. She denies chest pain, dyspnea, abdominal pain, nausea, vomiting, fever or chills. At baseline she is wheelchair-bound. She is able to feed herself and comb her hair but requires some assistance with dressing. She lives with her daughter. - HOSPITAL COURSE Hospital Course: Work-up in the ED included a CT of the head, CT angio head and neck which was negative for any acute intracranial process. Further work-up included an MRI of the brain upon admission which was also negative for any acute intracranial process. Patient's lipid panel was unremarkable. Patient's symptoms had resolved by the time of admission. Patient was monitored overnight with neurochecks every shift. There were no new neurological changes. She was discharged home the following day in stable condition. She was advised to follow-up with her primary care physician for a referral for a 2D echocardiogram to be done. This is part of a work-up for a TIA. Patient and her daughter expressed understanding and were agreeable with the plan. Patient uses a wheelchair to get around at baseline. - ALLERGIES Allergies/Adverse Reactions: Allergies Allergy/AdvReac Type Severity Reaction Status Date / Time No Known Drug Allergies Allergy Verified 12/22/21 11:30 - MEDICATIONS Home Medications: Ambulatory Orders Medication Instructions Recorded Confirmed Melatonin 3 mg PO QPM #0 04/12/20 12/22/21 Acetaminophen [Acetaminophen Extra 500 mg PO QID PRN 12/22/21 12/22/21 Strength] Alendronate [Fosamax] 70 mg PO Q7D 12/22/21 12/22/21 Aspirin [Aspirin EC] 81 mg PO DAILY 12/22/21 12/22/21 Arturo Cit/Mag/D3/Zn/Capsule Inspector/Rell/Bor 1 each PO DAILY 12/22/21 12/22/21 [Citracal-D3 Plus Magnesium Tab] Memantine HCl [Namenda] 10 mg PO DAILY 12/22/21 12/22/21 Oxybutynin Chloride [Ditropan Xl] 5 mg PO DAILY 12/22/21 12/22/21 - PHYSICAL EXAM AT DISCHARGE General Appearance: positive: No acute distress, Alert Eyes Bilateral: positive: PERRL, EOMI ENT: positive: No signs of dehydration Neck: positive: No JVD, Trachea midline Respiratory: positive: Chest non-tender, No respiratory distress, Breath sounds nml. negative: Wheezes, Rales, Rhonchi Cardiovascular: positive: Regular rate & rhythm, No murmur Abdomen: positive: Non-tender, No organomegaly, Nml bowel sounds, No distention. negative: Guarding, Rebound Back: positive: Nml inspection Skin: positive: Color nml, No rash, Warm, Dry. negative: Cyanosis Extremities: positive: Non-tender, Full ROM, Nml appearance, No pedal edema Neurologic/Psychiatric: positive: Oriented x3, Mood/affect nml - LABS Result Diagrams: 12/22/21 11:30 12/22/21 11:40 - TIME SPENT Time Spent in Discharge (Minutes): 15
--- NOTE | 2021-12-23 07:24 | Discharge Plan ---
Discharge Plan Problem Reviewed?: Yes Disposition: Home, Self Care Condition: Good Diet: Regular Activity Restrictions: Activity as Tolerated Assistance Devices: Wheelchair Health Concerns: You were admitted on 12/22/21 TIA symptoms. He woke up in the morning with slurred speech. By the time of admission your symptoms had resolved. Work-up in the emergency room included a CT of the brain and neck which was unremarkable. Further work-up included an MRI of the brain which was negative for any acute intracranial process. You were monitored overnight and had no new neurologic changes. Consequently you are being discharged on 12/23/21 in stable condition. You have been advised to follow-up with your primary care physician for referral for an outpatient 2D echocardiogram to complete the TIA work-up. You may also follow-up with your primary care physician within 7 to 10 days from discharge for a posthospitalization follow-up. The above plan was discussed with you and your daughter at bedside. You expressed understanding and agreeable to the plan. No Smoking: If you smoke, Please STOP! Call for help. Follow-up with: Alfonzo Diaz MD [Primary Care Provider] -
[2021-12-23 08:09] VITALS: BP 143/68
[2021-12-23] MEDS ORDERED: ASPIRIN EC 81 MG TABLET PO SCH (09:00)
[2021-12-23 12:07] LABS: ESTIMATED AVERAGE GLUCOSE 103 mg/dL (70-100); HEMOGLOBIN A1c% 5.2 % (4.27-6.07)
== END 2021-12-23 13:39 | disposition home or self-care (01) ==
LOC: ED 11:09 → UNDOADMOB 13:43 → INTOOBSV 13:43 → MS2 13:43
PROVIDERS: ADMIT Internal Medicine; ATTEND Internal Medicine
DX: G45.9 Transient cerebral ischemic attack, unspecified (principal); F03.90 Unspecified dementia, unspecified severity, without behavioral disturbance, psychotic disturbance, mood disturbance, and anxiety; Z99.3 Dependence on wheelchair; Z20.822 Contact with and (suspected) exposure to COVID-19; K21.9 Gastro-esophageal reflux disease without esophagitis; Z87.891 Personal history of nicotine dependence
CPT/HCPCS: 36415; 70450; 70496; 70498; 70551; 80053; 80061; 83036; 85025; 85610; 87633; 93005; 99285; A9270; G0378; Q9967; 83721